=== PATIENT | male | born 1955 | race Caucasian/White ===

== ENCOUNTER 2022-11-29 07:37 | Inpatient (IN) | payer MEDICARE, BC ==
[2022-11-29] MEDS ORDERED: SODIUM CHLORIDE 0.9% 1,000 ML IV STA (07:48)
--- NOTE | 2022-11-29 08:08 | ED ---
General Adult HPI - General Chief complaint: Abdominal Pain Stated complaint: stomachache Time Seen by Provider: 11/29/22 07:47 Source: patient Mode of arrival: ambulatory Limitations: no limitations - History of Present Illness Initial comments: Dictation was produced using [employer] dictation software. please excuse any grammatical, word or spelling errors. Chief Complaint: 67-year-old male presents with abdominal pain History of Present Illness: Patient is 59-year-old male past medical history hypertension presents to the ER for abdominal pain. Patient states that he has been having abdominal pain that started in the epigastric/periumbilical region yesterday. He started having tremors. He is seen at the urgent care were a influenza and COVID-19 tests were both negative. He is discharged. Today he states that his symptoms worsened. Now has pain is in the right lower quadrant. He has no history of appendectomy. Patient also states that his headache after hitting his head multiple times over the past 2 weeks. Denies any loss of consciousness. Denies any cough. No shortness of breath. No sore throat. The ROS documented in this emergency department record has been reviewed and confirmed by me. Those systems with pertinent positive or negative responses have been documented in the HPI. All other systems are other negative and/or noncontributory. - Related Data Allergies Allergy/AdvReac Type Severity Reaction Status Date / Time No Known Allergies Allergy Verified 11/29/22 07:46 Review of Systems ROS Statement: Those systems with pertinent positive or pertinent negative responses have been documented in the HPI. ROS Other: All systems not noted in ROS Statement are negative. Past Medical History Past Medical History: Hypertension History of Any Multi-Drug Resistant Organisms: None Reported Past Surgical History: No Surgical Hx Reported Past Psychological History: No Psychological Hx Reported Smoking Status: Never smoker Past Alcohol Use History: None Reported Past Drug Use History: None Reported General Exam - General Exam Comments Initial Comments: PHYSICAL EXAM: General Impression: Alert and oriented x3, not in acute distress HEENT: Normocephalic atraumatic, extra-ocular movements intact, pupils equal and reactive to light bilaterally, dry mucous membranes Cardiovascular: Heart regular rate and rhythm Chest: Able to complete full sentences, no retractions, no tachypnea Abdomen: abdomen soft, minimal tenderness to the right lower quadrant, non- distended, no organomegaly Musculoskeletal: Pulses present and equal in all extremities, no peripheral edema Motor: no focal deficits noted Neurological: CN II-XII grossly intact, no focal motor or sensory deficits noted Skin: Intact with no visualized rashes Psych: Normal affect and mood Limitations: no limitations Course Vital Signs 11/29/22 11/29/22 07:42 11:00 Temperature 99.8 F H Pulse Rate 101 H 83 Respiratory 18 18 Rate Blood Pressure 87/59 90/61 O2 Sat by Pulse 93 L 94 L Oximetry EKG Findings - EKG Comments: EKG Findings:: My EKG interpretation: Ventricular rate 80, sinus rhythm,. 170, QRS 93, QTC 396. No [place] prolongation, no QTC prolongation, no ST or T-wave changes noted. Overall, this EKG is unremarkable Procedures - Sepsis Sepsis Focused Exam #1 Time Sepsis Criteria Met: :15 Sepsis Focused Exam Date: 11/29/22 Sepsis Focused Exam Time: :16 Sepsis Focused Exam Complete: Yes Vital Signs & RN Notes Reviewed: Yes Capillary Refill: < 2 Seconds: Fingers, Toes Peripheral Pulses: Normal: Radial (R), Radial (L), Posterior Tibialis (R), Posterior Tibialis (L), Dorsalis Pedis (R), Dorsalis Pedis (L) Skin Color: Normal for Patient Respiratory Exam: normal lung sounds Cardiovascular Exam: regular rate Medical Decision Making - Medical Decision Making Was pt. sent in by a medical professional or institution (ZARIA Elliott, SENIOR HARDWARE ENGINEER, urgent care, hospital, or correction...) When possible be specific @ -No Did you speak to anyone other than the patient for history (EMS, parent, family, police, friend...)? What history was obtained from this source @ - states patient is abdominal pain Did you review nursing and triage notes (agree or disagree)? Why? @ -I reviewed and agree with nursing and triage notes Were old charts reviewed (outside hosp., previous admission, EMS record, old EKG, old radiological studies, urgent care reports/EKG's, correction records)? Report findings @ -No old charts were reviewed Differential Diagnosis (chest pain, altered mental status, abdominal pain women, abdominal pain men, vaginal bleeding, musculoskeletal, weakness, fever, dyspnea, syncope, headache, dizziness, GI bleed, back pain, seizure, CVA, palpatations, mental health)? @ -Differential Abdominal Pain Men: Appendicitis, cholecystitis, diverticulosis, ischemic bowel, pancreatitis, hepatitis, UTI, gastroenteritis, AAA, incarcerated hernia, bowel obstruction, constipation, inflammatory bowel, hepatitis, peptic ulcer disease, splenic infarction, perforated viscus, testicular torsion, this is not meant to be an all-inclusive list EKG interpreted by me (3pts min.). @ -See above X-rays interpreted by me (1pt min.). @ -None done CT interpreted by me (1pt min.). @ -CT abdomen and pelvis shows acute appendicitis U/S interpreted by me (1pt. min.). @ -None done What testing was considered but not performed or refused? (CT, X-rays, U/S, labs)? Why? @ -None What meds were considered but not given or refused? Why? @ -None Did you discuss the management of the patient with other professionals (professionals i.e. , PA, SENIOR HARDWARE ENGINEER, lab, RT, psych nurse, manager social responsibility, technical manager chemical plant, teacher, community cultural development officer, log manager)? Give summary @ -No Was smoking cessation discussed for >3mins.? @ -No Was critical care preformed (if so, how long)? @ -yes, 33 minutes Were there social determinants of health that impacted care today? How? (Homelessness, low income, unemployed, alcoholism, drug addiction, transportation, low edu. Level, literacy, decrease access to med. care, senior living, rehab)? @ -No Was there de-escalation of care discussed even if they declined (Discuss DNR or withdrawal of care, Hospice)? DNR status @ -No What co-morbidities impacted this encounter? (DM, HTN, Smoking, COPD, CAD, Cancer, CVA, ARF, Chemo, Hep., AIDS, mental health diagnosis, sleep apnea, morbid obesity)? @ -None Was patient admitted / discharged? Hospital course, mention meds given and route, prescriptions, significant lab abnormalities, going to OR and other pertinent info. @ -59-year-old male presents to emergency room with abdominal pain. Vital signs shows low blood pressure of 8759 patient given IV fluids with improvement of blood pressure. Low-grade temperature 99.8 orally. Patient has palpatory right lower quadrant pain. Laboratory evaluation obtained shows lactic acid of 4.4, CT shows acute appendicitis. Patient started on Zosyn. Physical presentation consistent with sepsis. Undiagnosed new problem with uncertain prognosis? @ -No Drug Therapy requiring intensive monitoring for toxicity (Heparin, Nitro, Insulin, Cardizem)? @ -No Were any procedures done? @ -No Diagnosis/symptom? Acute, or Chronic, or Acute on Chronic? Uncomplicated (without systemic symptoms) or Complicated (systemic symptoms)? @ -. Sepsis secondary to acute appendicitis Side effects of treatment? @ -No Exacerbation, Progression, or Severe Exacerbation? @ -No Poses a threat to life or bodily function? How? (Chest pain, [place], [place], pneumonia, PE, COPD, DKA, ARF, appy, cholecystitis, CVA, Diverticulitis, Homicidal, Suicidal, threat to staff... and all critical care pts) @ -yes - Lab Data Result diagrams: 11/29/22 08:10 11/29/22 08:10 Lab Results 11/29/22 11/29/22 11/29/22 Range/Units 08:10 08:10 08:10 WBC 10.5 (3.8-10.6) k/uL RBC 4.81 (4.30-5.90) m/uL Hgb 15.4 (13.0-17.5) gm/dL Hct 44.4 (39.0-53.0) % MCV 92.3 (80.0-100.0) fL MCH 32.1 (25.0-35.0) pg MCHC 34.8 (31.0-37.0) g/dL RDW 12.5 (11.5-15.5) % Plt Count 170 (150-450) k/uL MPV 8.0 Neutrophils % (Manual) 89 % Band Neuts % (Manual) 7 % Lymphocytes % (Manual) 2 % Monocytes % (Manual) 1 % Basophils % (Manual) 1 % Metamyelocytes % 2 % Neutrophils # (Manual) 10.00 H (1.3-7.7) k/uL Lymphocytes # (Manual) 0.21 L (1.0-4.8) k/uL Monocytes # (Manual) 0.11 (0-1.0) k/uL Basophils # (Manual) 0.11 (0-0.2) k/uL Metamyelocytes # (Man) 0.21 H (0) k/uL Nucleated RBCs 0 (0-0) /100 WBC Manual Slide Review Performed Toxic Granulation Present PT 12.2 H (9.0-12.0) sec INR 1.2 H (<1.2) APTT 24.1 (22.0-30.0) sec Sodium 133 L (137-145) mmol/L Potassium 3.6 (3.5-5.1) mmol/L Chloride 99 (98-107) mmol/L Carbon Dioxide 19 L (22-30) mmol/L Anion Gap 15 mmol/L BUN 19 (9-20) mg/dL Creatinine 1.23 (0.66-1.25) mg/dL Est GFR (CKD-EPI)AfAm 70 (>60 ml/min/1.73 sqM) Est GFR (CKD-EPI)NonAf 60 (>60 ml/min/1.73 sqM) Glucose 103 H (74-99) mg/dL Lactic Ac Sepsis Rflx Plasma Lactic Acid Jordi (0.7-2.0) mmol/L Calcium 8.9 (8.4-10.2) mg/dL Magnesium 1.9 (1.6-2.3) mg/dL Total Bilirubin 2.0 H (0.2-1.3) mg/dL AST 30 (17-59) U/L ALT 38 (4-49) U/L Alkaline Phosphatase 69 (38-126) U/L Total Protein 6.8 (6.3-8.2) g/dL Albumin 4.2 (3.5-5.0) g/dL Lipase 138 (23-300) U/L 11/29/22 11/29/22 Range/Units 08:10 08:45 WBC (3.8-10.6) k/uL RBC (4.30-5.90) m/uL Hgb (13.0-17.5) gm/dL Hct (39.0-53.0) % MCV (80.0-100.0) fL MCH (25.0-35.0) pg MCHC (31.0-37.0) g/dL RDW (11.5-15.5) % Plt Count (150-450) k/uL MPV Neutrophils % (Manual) % Band Neuts % (Manual) % Lymphocytes % (Manual) % Monocytes % (Manual) % Basophils % (Manual) % Metamyelocytes % % Neutrophils # (Manual) (1.3-7.7) k/uL Lymphocytes # (Manual) (1.0-4.8) k/uL Monocytes # (Manual) (0-1.0) k/uL Basophils # (Manual) (0-0.2) k/uL Metamyelocytes # (Man) (0) k/uL Nucleated RBCs (0-0) /100 WBC Manual Slide Review Toxic Granulation PT (9.0-12.0) sec INR (<1.2) APTT (22.0-30.0) sec Sodium (137-145) mmol/L Potassium (3.5-5.1) mmol/L Chloride (98-107) mmol/L Carbon Dioxide (22-30) mmol/L Anion Gap mmol/L BUN (9-20) mg/dL Creatinine (0.66-1.25) mg/dL Est GFR (CKD-EPI)AfAm (>60 ml/min/1.73 sqM) Est GFR (CKD-EPI)NonAf (>60 ml/min/1.73 sqM) Glucose (74-99) mg/dL Lactic Ac Sepsis Rflx Y Plasma Lactic Acid Jordi 4.4 H* (0.7-2.0) mmol/L Calcium (8.4-10.2) mg/dL Magnesium (1.6-2.3) mg/dL Total Bilirubin (0.2-1.3) mg/dL AST (17-59) U/L ALT (4-49) U/L Alkaline Phosphatase (38-126) U/L Total Protein (6.3-8.2) g/dL Albumin (3.5-5.0) g/dL Lipase (23-300) U/L Disposition Clinical Impression: Appendicitis Disposition: ADMITTED IP TO THIS [facility] Condition: Critical Referrals: Wilbur Brower MD [Primary Care Provider] - 1-2 days Decision Time: 11:16
[2022-11-29 08:41] LABS: AST 30 U/L (17-59); African American GFR (CKD) 70 (>60 ml/min/1.73 sqM); Albumin 4.2 g/dL (3.5-5.0); Alkaline Phosphatase 69 U/L (38-126); Anion Gap 15 mmol/L; Blood Urea Nitrogen 19 mg/dL (9-20); Calcium 8.9 mg/dL (8.4-10.2); Carbon Dioxide 19 mmol/L (22-30); Chloride 99 mmol/L (98-107); Glucose 103 mg/dL (74-99); Lipase 138 U/L (23-300); Magnesium 1.9 mg/dL (1.6-2.3); Non-African American GFR(CKD) 60 (>60 ml/min/1.73 sqM); Potassium 3.6 mmol/L (3.5-5.1); Sodium 133 mmol/L (137-145); Total Protein 6.8 g/dL (6.3-8.2)
[2022-11-29 08:47] LABS: ALT 38 U/L (4-49)
[2022-11-29 08:50] LABS: INR 1.2 (<1.2); Partial Thromboplastin Time 24.1 sec (22.0-30.0); Prothrombin Time 12.2 sec (9.0-12.0)
[2022-11-29 08:52] LABS: HCT 44.4 % (39.0-53.0); HGB 15.4 gm/dL (13.0-17.5); MCH 32.1 pg (25.0-35.0); MCHC 34.8 g/dL (31.0-37.0); MCV 92.3 fL (80.0-100.0); Platelet Count 170 k/uL (150-450); RBC 4.81 m/uL (4.30-5.90); RDW 12.5 % (11.5-15.5); WBC 10.5 k/uL (3.8-10.6)
[2022-11-29 09:24] LABS: Band Neutrophils % 7 %; Basophils # (M) 0.11 k/uL (0-0.2); Lymphocytes # (M) 0.21 k/uL (1.0-4.8); Metamyelocytes # (M) 0.21 k/uL (0); Metamyelocytes % 2 %; Monocytes # (M) 0.11 k/uL (0-1.0); Neutrophils % (M) 89 %; Nucleated Red Blood Cells 0 /100 WBC (0-0); Total Cells Counted 200
--- NOTE | 2022-11-29 09:24 | CT ---
EXAMINATION TYPE: CT brain wo con DATE OF EXAM: 11/29/2022 COMPARISON: None HISTORY: 67-year-old male with pain after Head injury, sweaty TECHNIQUE: Examination was done in axial plane without intravenous contrast. Coronal and sagittal r econstructions performed. CT DLP: 1099 mGycm Automated exposure control for dose reduction was used. FINDINGS: There is no evidence of acute intracranial hemorrhage, acute ischemic changes, mass, mass-effect, or extra-axial fluid collection. There is no effacement of cerebral sulci or basal subarachnoid cister ns. There is no hydrocephalus. There is no midline shift. Gonzalez-white matter distinction is preserv ed. Mild to moderate mucosal thickening left ethmoid air cells. Mastoid air cells are well pneumatized. O rbits and globes are intact. IMPRESSION: No acute intracranial abnormality seen. [id number] chronic left ethmoid sinus disease.
[2022-11-29 09:26] LABS: Toxic Granulation Present
--- NOTE | 2022-11-29 09:32 | CT ---
EXAMINATION TYPE: CT abdomen pelvis w con DATE OF EXAM: 11/29/2022 COMPARISON: NONE HISTORY: 67-year-old male abdominal pain and hypotension, Stomach pains TECHNIQUE: Contiguous axial scanning of the abdomen and pelvis following administration of 100 ml Iso noel 300 IV contrast. Delayed images through the kidneys and coronal/sagittal reconstructions perform ed. CT DLP: 2651 mGycm Automated exposure control for dose reduction was used. FINDINGS: LUNG BASES: Strandy atelectasis at the lung bases. Otherwise, no significant abnormality is appreciat ed. LIVER/GB: No significant abnormality is appreciated. PANCREAS: No significant abnormality is seen. SPLEEN: No significant abnormality is seen. ADRENALS: No significant abnormality is seen. KIDNEYS: On delayed kidney images, no contrast is seen within the renal collecting systems. BOWEL: Tiny hiatal hernia. There are dilated small bowel or free air. There is a thickened, fluid-filled, and an inflamed appendix in the right lower quadrant. 1.0 cm ante rolisthesis present at the base of the appendix. Moderate inflammatory fat stranding and stranding ed jonathan and fluid in the adjacent peritoneum. Mild generalized colonic diverticulosis. Mildly redundant s igmoid colon. LYMPH NODES: No significant abnormality is seen. OTHER: Small to moderate-sized 3.3 cm wide fatty umbilical hernia. Mild to moderate prostatic calcifi cations infrarenal abdominal aorta borderline ectasia of the infrarenal segment of the 2.5 cm.r ectas ia of the distal left common iliac artery up to 1.8 cm. PELVIS: Prostatomegaly of 5.3 cm wide. Pelvic phleboliths. Soft tissue impression onto the base of th e bladder. Bladder urine distended. No abnormal fluid collection in the pelvis. Prominent left junior recruiter al iliac chain lymph node measuring up to 1 cm probably reactive/post inflammatory. Small amount of p elvic ascites fluid. BONES: Hypertrophic facet arthropathy mid to lower lumbar spine with degenerative grade 1 anterolisth esis L4-L5 and L5-S1. Mild narrowing of the spinal canal at L4-L5. Moderate to severe left neural for aminal stenosis at L5-S1. IMPRESSION: 1. EXAM POSITIVE FOR ACUTE APPENDICITIS WITH MODERATE LOCAL INFLAMMATION, STRANDY SURROUNDING EDEMA, AND MILD PELVIC FREE FLUID LIKELY REACTIVE TO THE ABOVE INFLAMMATION. NO ABSCESS OR FREE AIR SEEN AT THIS TIME. 2. A 1 CM APPENDICOLITH AT THE BASE OF THE APPENDIX. 3. Mild generalized colonic diverticulosis. 4. Tiny hiatal hernia. Small to moderate sized fatty umbilical hernia. Prostatomegaly of 5.3 cm wide, possible BPH. 5. On the delayed images, no contrast is seen within the renal collecting systems. Correlate with BUN /creatinine to exclude acute kidney injury.
[2022-11-29] MEDS ORDERED: NALOXONE 0.4 MG/ML 1 ML VIAL IV PRN (11:12)
[2022-11-29] MEDS ORDERED: SODIUM CHLORIDE 0.9% 1,500 ML IV STA (11:44)
[2022-11-29] MEDS: SODIUM CHLORIDE 0.9% 1,000 ML IV SCH ×3 (12:19→22:17)
[2022-11-29] MEDS: PIPERACILLIN-TAZOBACTAM 3.375 GM in SODIUM CHLORIDE 0.9% 100 ML IVPB SCH ×2 (12:19→22:38)
[2022-11-29] MEDS ORDERED: ONDANSETRON 4 MG/2 ML VIAL IVP PRN (12:36)
--- NOTE | 2022-11-29 12:51 | P.GSHP ---
History of Present Illness H&P Date: 11/22/22 CHIEF COMPLAINT: Abdominal pain HISTORY OF PRESENT ILLNESS: This is a 67-year-old male who presented to the hospital with complaints of right lower quadrant abdominal pain. Patient reports that the pain started around 7:00 yesterday morning around the umbilicus area. It had then radiated down to the right lower quadrant. Patient reports the pain was severe. He was having chills and sweats. Also having nausea with dry heaves. He reports regular bowel movements. Denies any abdominal surgical history. denies any cardiac history. Computed tomography scan abdomen and pelvis did show evidence of acute appendicitis. Patient has been hypotensive. He has received 1 L fluid bolus and is scheduled for 1500 mL bolus. Also note patient apparently has had a fall. CT brain shows no acute intracranial abnormality. PAST MEDICAL HISTORY: See below PAST SURGICAL HISTORY: See below MEDICATIONS: See below ALLERGIES: See below SOCIAL HISTORY: No illicit drug use. REVIEW OF SYSTEMS: CONSTITUTIONAL: Denies fever or chills. HEENT: Denies blurred vision, vision changes, or eye pain. Denies hemoptysis CARDIOVASCULAR: Denies chest pain or pressure. RESPIRATORY: No shortness of breath. GASTROINTESTINAL: See HPI for pertinent findings HEMATOLOGIC: Denies bleeding disorders. GENITOURINARY: Denies any blood in urine or increased urinary frequency. SKIN: Denies pruitis. Denies rash. PHYSICAL EXAM: VITAL SIGNS: Reviewed GENERAL: Well-developed in no acute distress. ABDOMEN: Soft. Nondistended. Tenderness to palpation in the right lower quadrant NEUROLOGIC: Alert and oriented. Cranial nerves II through XII grossly intact. LABORATORY DATA: WBC 10.5 Hgb 15.4 platelets 170 INR 1.2 Sodium 133 potassium 3.6 creatinine 1.23 Lactic acid 4.4 Total bili 2.0 LFTs normal lipase 130 IMAGING: Computed tomography scan abdomen and pelvis in the report states positive for acute appendicitis with moderate local inflammation, strandy surrounding edema, mild pelvic free fluid likely reactive to the above inflammation. No abscess or free air seen at this time. 1 cm appendicolith at the base of the appendix. Mild generalize colonic diverticulosis. Tiny hiatal hernia. Small to moderate size fatty umbilical hernia. Prostamegaly. Computed tomography scan of the brain no acute intracranial abnormality seen. Mild to moderate chronic left ethmoid sinus disease. ASSESSMENT: 1. Acute appendicitis 2. Hypotension PLAN: -Patient scheduled for laparoscopic appendectomy today with Dr. Haynes -Keep patient nothing by mouth -Continue IV fluids and agree with IV fluid bolus -Start IV antibiotics -Continue antiemetics -IV Tylenol added as needed for pain -Consult placed for medicine service Physician Antique Furniture Repairer note has been reviewed by physician. Signing provider agrees with the documented findings, assessment, and plan of care. I have personally seen and examined the patient, reviewed the ACTIVITY THERAPY TEACHER /PAs history, exam and MDM and agree with the assessment and plan as written. Based on total visit time, I have performed more than 50% of the visit. As above: Patient with acute appendicitis and septic picture. Patient was started on antibiotics on arrival. Continue IV antibiotics. Will proceed with laparoscopic, possible open appendectomy at this time. Risks of bleeding, infection, conversion to an open procedure, bladder and bowel injury, hernia, abscess, progressive sepsis reviewed. He understands and wishes to proceed. Past Medical History Past Medical History: Hypertension History of Any Multi-Drug Resistant Organisms: None Reported Past Surgical History: No Surgical Hx Reported Past Psychological History: No Psychological Hx Reported Smoking Status: Never smoker Past Alcohol Use History: None Reported Past Drug Use History: None Reported Medications and Allergies Home Medications Medication Instructions Recorded Confirmed Type ALPRAZolam [Xanax] 0.25 mg PO DAILY PRN 11/29/22 11/29/22 History ALPRAZolam [Xanax] 0.25 mg PO HS 11/29/22 11/29/22 History Magnesium Oxide [Magnesium] 500 mg PO HS 11/29/22 11/29/22 History Sildenafil Citrate [Sildenafil] 20 mg PO DAILY PRN 11/29/22 11/29/22 History Thiamine [Vitamin B-1] 100 mg PO HS 11/29/22 11/29/22 History amLODIPine [Norvasc] 10 mg PO HS 11/29/22 11/29/22 History Allergies Allergy/AdvReac Type Severity Reaction Status Date / Time benazepril AdvReac Cough Verified 11/29/22 16:49 Surgical - Exam Vital Signs Temp Pulse Resp BP Pulse Ox 99.8 F H 101 H 18 87/59 93 L 11/29/22 07:42 11/29/22 07:42 11/29/22 07:42 11/29/22 07:42 11/29/22 07:42 Results - Labs 11/29/22 08:10 11/29/22 08:10 Abnormal Lab Results - Last 24 Hours (Table) 11/29/22 11/29/22 11/29/22 Range/Units 08:10 08:10 08:10 Neutrophils # (Manual) 10.00 H (1.3-7.7) k/uL Lymphocytes # (Manual) 0.21 L (1.0-4.8) k/uL Metamyelocytes # (Man) 0.21 H (0) k/uL PT 12.2 H (9.0-12.0) sec INR 1.2 H (<1.2) Sodium 133 L (137-145) mmol/L Carbon Dioxide 19 L (22-30) mmol/L Glucose 103 H (74-99) mg/dL Plasma Lactic Acid Jordi (0.7-2.0) mmol/L Total Bilirubin 2.0 H (0.2-1.3) mg/dL 11/29/22 Range/Units 08:10 Neutrophils # (Manual) (1.3-7.7) k/uL Lymphocytes # (Manual) (1.0-4.8) k/uL Metamyelocytes # (Man) (0) k/uL PT (9.0-12.0) sec INR (<1.2) Sodium (137-145) mmol/L Carbon Dioxide (22-30) mmol/L Glucose (74-99) mg/dL Plasma Lactic Acid Jordi 4.4 H* (0.7-2.0) mmol/L Total Bilirubin (0.2-1.3) mg/dL Diabetes panel 11/29/22 Range/Units 08:10 Sodium 133 L (137-145) mmol/L Potassium 3.6 (3.5-5.1) mmol/L Chloride 99 (98-107) mmol/L Carbon Dioxide 19 L (22-30) mmol/L BUN 19 (9-20) mg/dL Creatinine 1.23 (0.66-1.25) mg/dL Glucose 103 H (74-99) mg/dL Calcium 8.9 (8.4-10.2) mg/dL AST 30 (17-59) U/L ALT 38 (4-49) U/L Alkaline Phosphatase 69 (38-126) U/L Total Protein 6.8 (6.3-8.2) g/dL Albumin 4.2 (3.5-5.0) g/dL Calcium panel 11/29/22 Range/Units 08:10 Calcium 8.9 (8.4-10.2) mg/dL Albumin 4.2 (3.5-5.0) g/dL Pituitary panel 11/29/22 Range/Units 08:10 Sodium 133 L (137-145) mmol/L Potassium 3.6 (3.5-5.1) mmol/L Chloride 99 (98-107) mmol/L Carbon Dioxide 19 L (22-30) mmol/L BUN 19 (9-20) mg/dL Creatinine 1.23 (0.66-1.25) mg/dL Glucose 103 H (74-99) mg/dL Calcium 8.9 (8.4-10.2) mg/dL Adrenal panel 11/29/22 Range/Units 08:10 Sodium 133 L (137-145) mmol/L Potassium 3.6 (3.5-5.1) mmol/L Chloride 99 (98-107) mmol/L Carbon Dioxide 19 L (22-30) mmol/L BUN 19 (9-20) mg/dL Creatinine 1.23 (0.66-1.25) mg/dL Glucose 103 H (74-99) mg/dL Calcium 8.9 (8.4-10.2) mg/dL Total Bilirubin 2.0 H (0.2-1.3) mg/dL AST 30 (17-59) U/L ALT 38 (4-49) U/L Alkaline Phosphatase 69 (38-126) U/L Total Protein 6.8 (6.3-8.2) g/dL Albumin 4.2 (3.5-5.0) g/dL
[2022-11-29] MEDS ORDERED: SODIUM CHLORIDE 0.9% 500 ML 500 ML IV ONE (15:29)
--- NOTE | 2022-11-29 15:31 | P.CONS ---
History of Present Illness - History of Present Illness This is a pleasant 67 years old male with past medical history of hypertension. 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 He had regular bowel movement yesterday morning. He has low appetite and he vomited a little bit yesterday. He denies any chest pain or dyspnea. Patient says that he can go upstairs downstairs with no difficulty. No dyspnea No other neurological urinary symptoms. No headache or dizziness. He denies smoking alcohol or illicit drugs. While we do not encounter patient was experiencing chills he had a fever of 100.4. Blood pressure low-normal 87/59 and currently 100/60 Review of Systems Review of systems CONSTITUTIONAL: No fever, no malaise, no fatigue. HEENT: No recent visual problems or hearing problems. Denied any sore throat. CARDIOVASCULAR: No orthopnea, PND, no palpitations, no syncope. PULMONARY: No shortness of breath, no cough, no hemoptysis. -GASTROINTESTINAL: No diarrhea, no nausea, no vomiting, NEUROLOGICAL: No headaches, no weakness, no numbness. HEMATOLOGICAL: Denies any bleeding or petechiae. GENITOURINARY: Denies any burning micturition, frequency, or urgency. MUSCULOSKELETAL/RHEUMATOLOGICAL: Denies any joint pain, swelling, or any muscle pain. ENDOCRINE: Denies any polyuria or polydipsia. Past Medical History Past Medical History: Hypertension History of Any Multi-Drug Resistant Organisms: None Reported Past Surgical History: No Surgical Hx Reported Past Psychological History: No Psychological Hx Reported Smoking Status: Never smoker Past Alcohol Use History: None Reported Past Drug Use History: None Reported Medications and Allergies Home Medications Medication Instructions Recorded Confirmed Type ALPRAZolam [Xanax] 0.25 mg PO DAILY PRN 11/29/22 11/29/22 History ALPRAZolam [Xanax] 0.25 mg PO HS 11/29/22 11/29/22 History Magnesium Oxide [Magnesium] 500 mg PO HS 11/29/22 11/29/22 History Sildenafil Citrate [Sildenafil] 20 mg PO DAILY PRN 11/29/22 11/29/22 History Thiamine [Vitamin B-1] 100 mg PO HS 11/29/22 11/29/22 History amLODIPine [Norvasc] 10 mg PO HS 11/29/22 11/29/22 History Allergies Allergy/AdvReac Type Severity Reaction Status Date / Time benazepril AdvReac Cough Verified 11/29/22 11:57 Physical Exam Vitals: Vital Signs Temp Pulse Pulse Resp BP BP Pulse Ox 11/29/22 13:24 98.1 F 71 18 100/60 93 L 11/29/22 12:38 100.4 F H 78 15 104/67 94 L 11/29/22 11:00 83 18 90/61 94 L 11/29/22 07:42 99.8 F H 101 H 18 87/59 93 L Intake and Output 11/29/22 11/29/22 11/29/22 06:59 14:59 22:59 Other: Weight 104.326 kg GENERAL: The patient is alert and oriented x3, not in any acute distress. Well developed, well nourished. HEENT: Pupils are round and equally reacting to light. EOMI. No scleral icterus. No conjunctival pallor. Normocephalic, atraumatic. No pharyngeal erythema. No thyromegaly. CARDIOVASCULAR: S1 and S2 present. No murmurs, rubs, or gallops. PULMONARY: Chest is clear to auscultation, no wheezing , no crackles. -ABDOMEN: Soft, RLL tenderness with mild rebound tenderness, nondistended, normoactive bowel sounds. No palpable organomegaly. MUSCULOSKELETAL: No joint swelling or deformity. EXTREMITIES: No cyanosis, clubbing, or pedal edema. NEUROLOGICAL: Gross neurological examination did not reveal any focal deficits. SKIN: No rashes. no petechiae. Results CBC & Chem 7: 11/29/22 08:10 11/29/22 08:10 Labs: Abnormal Lab Results - Last 24 Hours (Table) 11/29/22 11/29/22 11/29/22 Range/Units 08:10 08:10 08:10 Neutrophils # (Manual) 10.00 H (1.3-7.7) k/uL Lymphocytes # (Manual) 0.21 L (1.0-4.8) k/uL Metamyelocytes # (Man) 0.21 H (0) k/uL PT 12.2 H (9.0-12.0) sec INR 1.2 H (<1.2) Sodium 133 L (137-145) mmol/L Carbon Dioxide 19 L (22-30) mmol/L Glucose 103 H (74-99) mg/dL Plasma Lactic Acid Jordi (0.7-2.0) mmol/L Total Bilirubin 2.0 H (0.2-1.3) mg/dL 08/25/23 Range/Units 08:10 Neutrophils # (Manual) (1.3-7.7) k/uL Lymphocytes # (Manual) (1.0-4.8) k/uL Metamyelocytes # (Man) (0) k/uL PT (9.0-12.0) sec INR (<1.2) Sodium (137-145) mmol/L Carbon Dioxide (22-30) mmol/L Glucose (74-99) mg/dL Plasma Lactic Acid Jordi 4.4 H* (0.7-2.0) mmol/L Total Bilirubin (0.2-1.3) mg/dL Assessment and Plan Assessment: Acute appendicitis Sepsis with fever and tachycardia Hypotension secondary to above History of hypertension Obesity with BMI of 31.2 Plan: Give 1 more bolus of normal saline 500 mL Continue with aggressive IV hydration, currently on normal saline with 30 mL per hour Continue with Zosyn alone. Blood culture Pain management Surgery primary team on the case for surgical excision of this appendicitis Labs and medication were reviewed.. Continue same treatment. Continue with symptomatic treatment. Resume home medication. Monitor labs and vitals. DVT and GI prophylaxis. Further recommendations as per clinical course of the patient DVT prophylaxis: Subcutaneous heparin GI Prophylaxis: Pepcid Prognosis is guarded Thank you for your consult, we will follow up
[2022-11-29] MEDS ORDERED: HEPARIN SODIUM,PORCINE/PF 5,000 UNIT/0.5 ML SYRINGE SQ ONE (16:57)
[2022-11-29] MEDS ORDERED: LACTATED RINGERS 1,000 ML IV ONE ×5 (16:57→20:25)
[2022-11-29] MEDS ORDERED: fentaNYL (PF) 50 MCG/ML 2 ML AMP ONE (17:26)
[2022-11-29] MEDS ORDERED: SUCCINYLCHOLINE CHLORIDE 200 MG/10 ML VIAL IV ONE (17:26)
[2022-11-29] MEDS ORDERED: KETOROLAC 15 MG/ML 1 ML VIAL ONE (17:26)
[2022-11-29] MEDS ORDERED: GLYCOPYRROLATE 0.2 MG/ML 2 ML VIAL ONE (17:26)
[2022-11-29] MEDS ORDERED: PROPOFOL 10 MG/ML 20 ML VIAL IV ONE (17:26)
[2022-11-29] MEDS ORDERED: LIDOCAINE 4% LTA KIT (4 ML) TOPICAL ONE (17:26)
[2022-11-29] MEDS ORDERED: HYDROmorphone (PF) 1 MG/ML ONE (17:26)
[2022-11-29] MEDS ORDERED: NEOSTIGMINE 1 MG/ML 10 ML VIAL ONE (17:26)
[2022-11-29] MEDS ORDERED: ROCURONIUM 10 MG/ML (5 ML VIAL) IV ONE (17:26)
[2022-11-29] MEDS ORDERED: LIDOCAINE 2% INJ 20 MG/ML (2 ML VIAL) ONE (17:26)
[2022-11-29] MEDS ORDERED: MIDAZOLAM 2 MG/2 ML VIAL ONE (17:26)
[2022-11-29] MEDS ORDERED: metroNIDAZOLE-NS PMX 500 MG in SALINE 1 100ML.BAG IVPB STA (17:28)
[2022-11-29] MEDS ORDERED: HEPARIN SODIUM,PORCINE 5,000 UNIT/ML 1 ML VIAL SQ ONE (17:30)
[2022-11-29] MEDS ORDERED: BUPIVACAINE (PF) 0.25% 10 ML VIAL SQ ONE (17:52)
[2022-11-29] MEDS ORDERED: HYDROmorphone 0.5 MG/0.5 ML SYRINGE IVP PRN (18:42)
[2022-11-29] MEDS ORDERED: HYDROmorphone 1 MG/ML 1 ML SYRINGE IVP PRN (18:42)
[2022-11-29] MEDS ORDERED: HYDROcodone/APAP 5-325MG 1 EACH TAB PO PRN (18:42)
--- NOTE | 2022-11-29 18:46 | P.OP ---
Date of Procedure: 11/29/22 Procedure(s) Performed: PREOPERATIVE DIAGNOSIS: Acute appendicitis POSTOPERATIVE DIAGNOSIS: Gangrenous appendicitis PROCEDURE: Laparoscopic appendectomy SURGEON: [place] EBL: 25 mL ANESTHESIA: General COMPLICATIONS: None OPERATIVE PROCEDURE: The patient was brought and placed on the operating table in the supine position. The patient was placed under general anesthesia. The abdomen was prepped and draped in the usual sterile fashion. The patient had a [id number]-sized umbilical hernia. For that reason a supraumbilical curvilinear incision was made. The fascia was retracted anteriorly with Lynsey forceps. The Veress needle was advanced into the peritoneal cavity. The saline drop test was normal. Insufflation took place to 15 mmHg. A 5 mm trocar was then placed. An additional 5 mm suprapubic trocar was placed under direct visualization as well as a 12 mm left lower quadrant trocar under direct visualization. The appendix was inspected. It was acutely inflamed and actually had a somewhat hemorrhagic appearance. The pericolonic fat was adherent to the appendix and this was able to be bluntly dissected. The appendix itself and the mesentery had ecchymosis noted. The base of the appendix was divided using a white load 45 mm intestinal stapler. The mesoappendix was divided using both LigaSure and 12 mm clips. The area was thoroughly irrigated no bleeding was seen. The appendix was brought out of the peritoneal cavity through the left lower quadrant trocar site with an Endo Catch bag. The fascia at the 12 mm site was closed using a [id number] 0 Vicryl stitch. The skin at all 3 sites was closed using 4-0 Monocryl sutures. Skin glue was then applied. DISPOSITION: Stable to recovery room
[2022-11-29] MEDS: ACETAMINOPHEN IV (For NPO) 1,000 MG in EMPTY BAG 1 BAG IVPB PRN ×2 (19:04→19:19)
[2022-11-29] MEDS: PHENYLEPHRINE-0.9% NACL SYG 1,000 MCG/10 ML SYRINGE IVP ONE ×4 (19:56→20:50)
[2022-11-29] MEDS: FAMOTIDINE 20 MG/2 ML VIAL IV SCH (22:39)
[2022-11-29] MEDS: HEPARIN SODIUM,PORCINE 5,000 UNIT/ML 1 ML VIAL SQ SCH (22:40)
[2022-11-29] MEDS: THIAMINE 100 MG TAB PO SCH (22:40)
[2022-11-30] MEDS: metroNIDAZOLE-NS PMX 500 MG in SALINE 1 100ML.BAG IVPB SCH ×4 (00:35→23:44)
[2022-11-30] MEDS: PIPERACILLIN-TAZOBACTAM 3.375 GM in SODIUM CHLORIDE 0.9% 100 ML IVPB SCH ×3 (03:23→18:26)
[2022-11-30 08:28] LABS: Basophils % (A) 0 %; Eosinophils # (A) 0.1 k/uL (0-0.7); Eosinophils % (A) 1 %; HCT 39.5 % (39.0-53.0); HGB 13.5 gm/dL (13.0-17.5); Lymphocytes # (A) 0.4 k/uL (1.0-4.8); Lymphocytes % (A) 4 %; MCH 32.3 pg (25.0-35.0); MCHC 34.1 g/dL (31.0-37.0); MCV 94.5 fL (80.0-100.0); Mean Platelet Volume 8.6; Monocytes # (A) 0.3 k/uL (0-1.0); Monocytes % (A) 3 %; Neutrophils # (A) 11.1 k/uL (1.3-7.7); Neutrophils % (A) 93 %; Platelet Count 103 k/uL (150-450); RBC 4.18 m/uL (4.30-5.90)
[2022-11-30 08:47] LABS: African American GFR (CKD) >90 (>60 ml/min/1.73 sqM); Anion Gap 9 mmol/L; Blood Urea Nitrogen 18 mg/dL (9-20); Calcium 7.7 mg/dL (8.4-10.2); Carbon Dioxide 22 mmol/L (22-30); Chloride 104 mmol/L (98-107); Glucose 95 mg/dL (74-99); Non-African American GFR(CKD) 80 (>60 ml/min/1.73 sqM); Potassium 3.8 mmol/L (3.5-5.1); Sodium 135 mmol/L (137-145)
[2022-11-30] MEDS: FAMOTIDINE 20 MG/2 ML VIAL IV SCH ×2 (09:06→20:17)
[2022-11-30] MEDS: SODIUM CHLORIDE 0.9% 1,000 ML IV SCH ×3 (09:06→18:26)
[2022-11-30] MEDS: HEPARIN SODIUM,PORCINE 5,000 UNIT/ML 1 ML VIAL SQ SCH ×2 (09:07→20:17)
--- NOTE | 2022-11-30 10:07 | P.PN ---
Subjective Progress Note Date: 11/30/22 Principal diagnosis: Acute appendicitis 59-year-old male doing better today. Blood pressure has been on the low side overnight. He says he feels much better than he did preoperatively. Making adequate urine. White blood cell count 12.0, lactic acid normalized. Fevers have improved. Objective - Vital Signs Vital signs: Vital Signs Temp 97.9 F 11/30/22 07:17 Pulse 54 L 11/30/22 07:17 Resp 18 11/30/22 07:17 BP 106/70 11/30/22 07:17 Pulse Ox 97 11/30/22 07:17 FiO2 Intake & Output 11/29/22 11/30/22 11/30/22 18:59 06:59 18:59 Intake Total 1050 2400 Output Total 25 Balance 1025 2400 Weight 104.326 kg 104.326 kg Intake: IV 1050 2400 Output: Estimated Blood Loss 25 Other: # Voids 1 2 - Exam Abdomen: Soft, nondistended, mild right lower quadrant and incisional tenderness, improved, incisions clean and dry - Labs CBC & Chem 7: 11/30/22 07:51 11/30/22 07:51 Labs: Abnormal Lab Results - Last 24 Hours (Table) 11/30/22 11/30/22 Range/Units 07:51 07:51 WBC 12.0 H (3.8-10.6) k/uL RBC 4.18 L (4.30-5.90) m/uL Plt Count 103 L (150-450) k/uL Neutrophils # 11.1 H (1.3-7.7) k/uL Lymphocytes # 0.4 L (1.0-4.8) k/uL Sodium 135 L (137-145) mmol/L Calcium 7.7 L (8.4-10.2) mg/dL Microbiology - Last 24 Hours (Table) 11/29/22 08:10 Blood Culture Gram Stain - Preliminary Blood Blood Culture - Preliminary Gram Neg Bacilli Gram Neg Bacilli#2 11/29/22 09:35 Blood Culture Gram Stain - Preliminary Blood Assessment and Plan (1) Sepsis Narrative/Plan: 67-year-old male with acute appendicitis and sepsis on presentation. Patient doing better today. Continue antibiotics. Await infectious disease consult. Repeat labs tomorrow. Advance diet. Anticipate discharge tomorrow if doing well. Current Visit: Yes Status: Acute Code(s): A41.9 - SEPSIS, UNSPECIFIED ORGANISM SNOMED Code(s): 60824719
--- NOTE | 2022-11-30 12:53 | P.PN ---
Subjective This is a pleasant 67 years old male with past medical history of hypertension. 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 He had regular bowel movement yesterday morning. He has low appetite and he vomited a little bit yesterday. He denies any chest pain or dyspnea. Patient says that he can go upstairs downstairs with no difficulty. No dyspnea No other neurological urinary symptoms. No headache or dizziness. He denies smoking alcohol or illicit drugs. While we do not encounter patient was experiencing chills he had a fever of 100.4. Blood pressure low-normal 87/59 and currently 100/60 11/30/2022 patient is sitting up in bed. He is status post laparoscopic cholecystectomy appendectomy. Today is postop day #1. He feels better, he feels some pressure or mild pain in the right lower quadrant, he is on liquid diet this morning. He did not have bowel movement yet. Patient was updated about his problem on positive blood culture and he verbalized understanding and acceptance with the treatment plan. Patient currently covered with Zosyn and Flagyl and blood culture is positive for gram-negative bacilli. I agree with infectious disease consult. Blood pressure is soft but is improving. Continue with aggressive hydration currently on normal saline with 130 mL/h Objective - Vital Signs Vital signs: Vital Signs Temp 97.9 F 11/30/22 07:17 Pulse 54 L 11/30/22 07:17 Resp 18 11/30/22 07:17 BP 106/70 11/30/22 07:17 Pulse Ox 97 11/30/22 07:17 FiO2 Intake & Output 11/29/22 11/30/22 11/30/22 18:59 06:59 18:59 Intake Total 1050 2400 Output Total 25 Balance 1025 2400 Weight 104.326 kg 104.326 kg Intake: IV 1050 2400 Output: Estimated Blood Loss 25 Other: # Voids 1 - Exam GENERAL: The patient is alert and oriented x3, not in any acute distress. Well developed, well nourished. HEENT: Pupils are round and equally reacting to light. EOMI. No scleral icterus. No conjunctival pallor. Normocephalic, atraumatic. No pharyngeal erythema. No thyromegaly. CARDIOVASCULAR: S1 and S2 present. No murmurs, rubs, or gallops. PULMONARY: Chest is clear to auscultation, no wheezing , no crackles. ABDOMEN: Soft, nontender, nondistended, normoactive bowel sounds. No palpable organomegaly. MUSCULOSKELETAL: No joint swelling or deformity. EXTREMITIES: No cyanosis, clubbing, or pedal edema. NEUROLOGICAL: Gross neurological examination did not reveal any focal deficits. SKIN: No rashes. no petechiae. - Labs CBC & Chem 7: 11/30/22 07:51 11/30/22 07:51 Labs: Abnormal Lab Results - Last 24 Hours (Table) 11/29/22 11/29/22 11/29/22 Range/Units 08:10 08:10 08:10 Neutrophils # (Manual) 10.00 H (1.3-7.7) k/uL Lymphocytes # (Manual) 0.21 L (1.0-4.8) k/uL Metamyelocytes # (Man) 0.21 H (0) k/uL PT 12.2 H (9.0-12.0) sec INR 1.2 H (<1.2) Sodium 133 L (137-145) mmol/L Carbon Dioxide 19 L (22-30) mmol/L Glucose 103 H (74-99) mg/dL Plasma Lactic Acid Jordi (0.7-2.0) mmol/L Total Bilirubin 2.0 H (0.2-1.3) mg/dL 11/29/22 Range/Units 08:10 Neutrophils # (Manual) (1.3-7.7) k/uL Lymphocytes # (Manual) (1.0-4.8) k/uL Metamyelocytes # (Man) (0) k/uL PT (9.0-12.0) sec INR (<1.2) Sodium (137-145) mmol/L Carbon Dioxide (22-30) mmol/L Glucose (74-99) mg/dL Plasma Lactic Acid Jordi 4.4 H* (0.7-2.0) mmol/L Total Bilirubin (0.2-1.3) mg/dL Microbiology - Last 24 Hours (Table) 11/29/22 09:35 Blood Culture Gram Stain - Preliminary Blood 11/29/22 08:10 Blood Culture Gram Stain - Preliminary Blood Assessment and Plan Assessment: Acute appendicitis Sepsis with fever and tachycardia Gram-negative bacilli (2 ) bacteremia Hypotension secondary to above History of hypertension Obesity with BMI of 31.2 Plan: Continue with antibiotic Flagyl and Zosyn, follow-up culture results Continue with Actos hydration with normal AT 130 mL per hour Continue with Zosyn alone. Blood culture Pain management Surgery primary team on the case for surgical excision of this appendicitis Labs and medication were reviewed.. Continue same treatment. Continue with symptomatic treatment. Resume home medication. Monitor labs and vitals. DVT and GI prophylaxis. Further recommendations as per clinical course of the patient DVT prophylaxis: Subcutaneous heparin GI Prophylaxis: Pepcid Prognosis is guarded Thank you for your consult, we will follow up
[2022-11-30] MEDS: ACETAMINOPHEN TAB 325 MG TAB PO PRN ×2 (14:03→20:17)
[2022-11-30] MEDS: THIAMINE 100 MG TAB PO SCH (20:17)
[2022-12-01] MEDS: PIPERACILLIN-TAZOBACTAM 3.375 GM in SODIUM CHLORIDE 0.9% 100 ML IVPB SCH ×3 (03:09→18:11)
[2022-12-01] MEDS: SODIUM CHLORIDE 0.9% 1,000 ML IV SCH ×3 (03:09→18:10)
[2022-12-01 07:44] LABS: Basophils % (A) 0 %; Eosinophils # (A) 0.1 k/uL (0-0.7); Eosinophils % (A) 1 %; HCT 40.1 % (39.0-53.0); HGB 13.5 gm/dL (13.0-17.5); Lymphocytes # (A) 0.2 k/uL (1.0-4.8); Lymphocytes % (A) 3 %; MCHC 33.6 g/dL (31.0-37.0); Mean Platelet Volume 8.9; Monocytes # (A) 0.3 k/uL (0-1.0); Monocytes % (A) 4 %; Neutrophils # (A) 6.4 k/uL (1.3-7.7); Neutrophils % (A) 90 %; RBC 4.22 m/uL (4.30-5.90); WBC 7.1 k/uL (3.8-10.6)
[2022-12-01 08:08] LABS: African American GFR (CKD) >90 (>60 ml/min/1.73 sqM); Anion Gap 8 mmol/L; Blood Urea Nitrogen 14 mg/dL (9-20); Calcium 7.6 mg/dL (8.4-10.2); Carbon Dioxide 22 mmol/L (22-30); Chloride 103 mmol/L (98-107); Glucose 101 mg/dL (74-99); Non-African American GFR(CKD) 89 (>60 ml/min/1.73 sqM); Potassium 3.6 mmol/L (3.5-5.1); Sodium 133 mmol/L (137-145)
[2022-12-01 08:39] LABS: Platelet Count 80 k/uL (150-450)
[2022-12-01] MEDS: metroNIDAZOLE-NS PMX 500 MG in SALINE 1 100ML.BAG IVPB SCH ×3 (09:07→23:33)
[2022-12-01] MEDS: HEPARIN SODIUM,PORCINE 5,000 UNIT/ML 1 ML VIAL SQ SCH ×2 (09:08→21:17)
[2022-12-01] MEDS: FAMOTIDINE 20 MG/2 ML VIAL IV SCH ×2 (09:08→21:17)
--- NOTE | 2022-12-01 09:49 | P.PN ---
Subjective Progress Note Date: 12/01/22 Principal diagnosis: Acute appendicitis Patient had fevers last night of 11.6. He'll about the same as yesterday. He says he does not feel ready to go home. Appetite is minimal. No nausea or vomiting however. Abdominal discomfort improving. Objective - Vital Signs Vital signs: Vital Signs Temp 101.6 F H 12/01/22 07:08 Pulse 67 12/01/22 07:08 Resp 18 12/01/22 07:08 BP 145/88 12/01/22 07:08 Pulse Ox 93 L 12/01/22 09:46 FiO2 21 12/01/22 09:46 Intake & Output 11/30/22 12/01/22 12/01/22 18:59 06:59 18:59 Output Total 1500 Balance -1500 Output: Urine 1500 Other: Voiding Method Toilet Urinal # Voids 2 - Exam Abdomen: Soft, minimal distention, mild incisional tenderness, mild right lower quadrant tenderness - Labs CBC & Chem 7: 12/01/22 06:55 12/01/22 06:55 Labs: Abnormal Lab Results - Last 24 Hours (Table) 12/01/22 12/01/22 Range/Units 06:55 06:55 RBC 4.22 L (4.30-5.90) m/uL Plt Count 80 L (150-450) k/uL Lymphocytes # 0.2 L (1.0-4.8) k/uL Sodium 133 L (137-145) mmol/L Glucose 101 H (74-99) mg/dL Calcium 7.6 L (8.4-10.2) mg/dL Microbiology - Last 24 Hours (Table) 11/29/22 08:10 Blood Culture Gram Stain - Preliminary Blood Blood Culture - Preliminary Gram Neg Bacilli Gram Neg Bacilli#2 11/29/22 09:35 Blood Culture Gram Stain - Preliminary Blood Assessment and Plan (1) Sepsis Narrative/Plan: Patient doing slightly better today. He did have fever of 11.6. White blood cell count is now normal. He did have 2 blood cultures positive for E. coli and Klebsiella. Patient remains on Flagyl and Zosyn. Continue antibiotics. Continue diet. Monitor for persistent fevers. Current Visit: Yes Status: Acute Code(s): A41.9 - SEPSIS, UNSPECIFIED ORGANISM SNOMED Code(s): 91829092
--- NOTE | 2022-12-01 12:05 | P.CONS ---
History of Present Illness - Reason for Consult Consult date: 11/30/22 - History of Present Illness Patient is a 67-year-old male with a past medical history significant for hypertension patient presented to hospital 11/29/2022 for abdominal pain has been going on for about a day and a half before presentation to the hospital patient the pain was mostly the right lower quadrant area describing it to be sharp intense and almost 10 out of 10 in severity by the time he present to the hospital with similar duration to them likely area did have associated nausea but no vomiting also complaining of sweats and chills associated with it with the same the patient was evaluated on presentation to the hospital patient did have a low-grade fever of 99.8 subsequently spiked a fever of 105.6 F and did have a fever of 102.7 F this morning patient did have a CT of abdominal pelvis that was suggestive of appendicitis with moderate local inflammation stranding surrounding edema and mild pelvic free fluid likely reactive to the above inflammation patient was taken to the OR last evening at this patient is status post laparoscopic appendectomy for gangrenous appendicitis patient did have a blood cultures obtained growing 2 different gram-negative bacilli patient is currently on Zosyn infectious disease was consulted for further management of antibiotic therapy, patient did have a white count of 12,000 this morning with a left shift creatinine is normal at 0.8 lactic acid admission was four-point 4 repeat is normal liver enzymes are normal Past Medical History Past Medical History: Hypertension History of Any Multi-Drug Resistant Organisms: None Reported Past Surgical History: No Surgical Hx Reported Past Anesthesia/Blood Transfusion Reactions: No Reported Reaction Past Psychological History: No Psychological Hx Reported Smoking Status: Never smoker Past Alcohol Use History: None Reported Past Drug Use History: None Reported Medications and Allergies Home Medications Medication Instructions Recorded Confirmed Type ALPRAZolam [Xanax] 0.25 mg PO DAILY PRN 11/29/22 11/29/22 History ALPRAZolam [Xanax] 0.25 mg PO HS 11/29/22 11/29/22 History Magnesium Oxide [Magnesium] 500 mg PO HS 11/29/22 11/29/22 History Sildenafil Citrate [Sildenafil] 20 mg PO DAILY PRN 11/29/22 11/29/22 History Thiamine [Vitamin B-1] 100 mg PO HS 11/29/22 11/29/22 History amLODIPine [Norvasc] 10 mg PO HS 11/29/22 11/29/22 History Allergies Allergy/AdvReac Type Severity Reaction Status Date / Time benazepril AdvReac Cough Verified 11/29/22 16:49 Physical Exam Vitals: Vital Signs Temp Pulse Resp BP Pulse Ox 11/30/22 12:03 92 L 11/30/22 07:17 97.9 F 54 L 18 106/70 97 11/30/22 00:54 54 L 99/63 96 11/30/22 00:40 58 L 95/59 96 11/30/22 00:25 56 L 16 93/56 95 11/30/22 00:10 59 L 16 94/59 95 11/29/22 23:39 63 16 92/58 89 L 11/29/22 23:24 65 96/51 90 L 11/29/22 23:09 65 96/60 91 L 11/29/22 22:55 61 94/62 91 L 11/29/22 22:39 66 101/66 11/29/22 22:13 72 16 91/58 98 11/29/22 21:58 63 16 92/68 98 11/29/22 21:43 62 16 82/63 98 11/29/22 21:28 64 16 91/57 97 11/29/22 21:13 65 18 97/62 97 11/29/22 20:58 67 18 86/57 96 11/29/22 20:43 68 16 83/58 96 11/29/22 20:28 71 16 75/54 95 11/29/22 20:13 68 16 80/56 96 11/29/22 19:58 72 16 78/55 95 11/29/22 19:43 70 16 79/58 95 11/29/22 19:28 67 16 85/61 96 11/29/22 19:13 71 16 91/55 92 L 11/29/22 18:58 72 16 87/54 94 L 11/29/22 18:43 102 F H 86 16 91/60 93 L 11/29/22 17:00 105.6 F H 11/29/22 16:52 103.1 F H 105 H 18 111/55 91 L 11/29/22 14:35 98.7 F 64 18 103/68 92 L Intake and Output 11/29/22 11/30/22 11/30/22 22:59 06:59 14:59 Intake Total 3450 Output Total 25 Balance 3425 Intake: IV 3450 Output: Estimated Blood Loss 25 Other: # Voids 1 2 Weight 104.326 kg Results CBC & Chem 7: 12/01/22 06:55 12/01/22 06:55 Labs: Abnormal Lab Results - Last 24 Hours (Table) 11/30/22 11/30/22 Range/Units 07:51 07:51 WBC 12.0 H (3.8-10.6) k/uL RBC 4.18 L (4.30-5.90) m/uL Plt Count 103 L (150-450) k/uL Neutrophils # 11.1 H (1.3-7.7) k/uL Lymphocytes # 0.4 L (1.0-4.8) k/uL Sodium 135 L (137-145) mmol/L Calcium 7.7 L (8.4-10.2) mg/dL Microbiology - Last 24 Hours (Table) 11/29/22 08:10 Blood Culture Gram Stain - Preliminary Blood Blood Culture - Preliminary Gram Neg Bacilli Gram Neg Bacilli#2 11/29/22 09:35 Blood Culture Gram Stain - Preliminary Blood Assessment and Plan Plan: 1patient present to hospital with sepsis in this patient with a fever tachycardia elevated lactic acid and leukocytosis source is complicated appendicitis in this patient with evidence of gangrenous appendicitis that is post laparoscopic appendectomy. 2gram-negative bacteremia source likely abdominal/gangrenous appendicitis. 3we will keep the patient on Zosyn 3.375 g every 8 hours should provide adequate antibiotic coverage for underlying infection and bacteremia we will follow on clinical condition and cultures to further adjust medication if needed Thank you for this consultation we will follow the patient along with you Dictation was produced using [employer] dictation software. please excuse any grammatical, word or spelling errors., Time with Patient: Greater than 30
--- NOTE | 2022-12-01 12:30 | P.PN ---
Subjective This is a pleasant 67 years old male with past medical history of hypertension. 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 He had regular bowel movement yesterday morning. He has low appetite and he vomited a little bit yesterday. He denies any chest pain or dyspnea. Patient says that he can go upstairs downstairs with no difficulty. No dyspnea No other neurological urinary symptoms. No headache or dizziness. He denies smoking alcohol or illicit drugs. While we do not encounter patient was experiencing chills he had a fever of 100.4. Blood pressure low-normal 87/59 and currently 100/60 11/30/2022 patient is sitting up in bed. He is status post laparoscopic cholecystectomy appendectomy. Today is postop day #1. He feels better, he feels some pressure or mild pain in the right lower quadrant, he is on liquid diet this morning. He did not have bowel movement yet. Patient was updated about his problem on positive blood culture and he verbalized understanding and acceptance with the treatment plan. Patient currently covered with Zosyn and Flagyl and blood culture is positive for gram-negative bacilli. I agree with infectious disease consult. Blood pressure is soft but is improving. Continue with aggressive hydration currently on normal saline with 130 mL/h 12/01/2022 Patient looks more comfortable, more energetic today, pleasant not in distress. No abdominal pain. He is on regular diet now. No bowel movement yet. He was able to take a shower this morning Patient still has fever of 101 today but is improving compared to yesterday 105.6 Continue with Zosyn Objective - Vital Signs Vital signs: Vital Signs Temp 101.6 F H 12/01/22 07:08 Pulse 67 12/01/22 07:08 Resp 18 12/01/22 07:08 BP 145/88 12/01/22 07:08 Pulse Ox 93 L 12/01/22 07:08 FiO2 Intake & Output 11/30/22 12/01/22 12/01/22 18:59 06:59 18:59 Output Total 1500 Balance -1500 Output: Urine 1500 Other: Voiding Method Toilet Urinal # Voids 2 - Exam GENERAL: The patient is alert and oriented x3, not in any acute distress. Well developed, well nourished. HEENT: Pupils are round and equally reacting to light. EOMI. No scleral icterus. No conjunctival pallor. Normocephalic, atraumatic. No pharyngeal erythema. No thyromegaly. CARDIOVASCULAR: S1 and S2 present. No murmurs, rubs, or gallops. PULMONARY: Chest is clear to auscultation, no wheezing , no crackles. ABDOMEN: Soft, nontender, nondistended, normoactive bowel sounds. No palpable organomegaly. MUSCULOSKELETAL: No joint swelling or deformity. EXTREMITIES: No cyanosis, clubbing, or pedal edema. NEUROLOGICAL: Gross neurological examination did not reveal any focal deficits. SKIN: No rashes. no petechiae. - Labs CBC & Chem 7: 12/01/22 06:55 12/01/22 06:55 Labs: Abnormal Lab Results - Last 24 Hours (Table) 12/01/22 12/01/22 Range/Units 06:55 06:55 RBC 4.22 L (4.30-5.90) m/uL Plt Count 80 L (150-450) k/uL Lymphocytes # 0.2 L (1.0-4.8) k/uL Sodium 133 L (137-145) mmol/L Glucose 101 H (74-99) mg/dL Calcium 7.6 L (8.4-10.2) mg/dL Microbiology - Last 24 Hours (Table) 11/29/22 08:10 Blood Culture Gram Stain - Preliminary Blood Blood Culture - Preliminary Gram Neg Bacilli Gram Neg Bacilli#2 11/29/22 09:35 Blood Culture Gram Stain - Preliminary Blood Assessment and Plan Assessment: Acute appendicitis Sepsis with fever and tachycardia Gram-negative bacilli (2 ) bacteremia Hypotension secondary to above History of hypertension Obesity with BMI of 31.2 Plan: Continue with antibiotic Flagyl and Zosyn, follow-up culture results Continue with Actos hydration with normal AT 130 mL per hour Continue with Zosyn alone. Blood culture Pain management Surgery primary team on the case for surgical excision of this appendicitis Labs and medication were reviewed.. Continue same treatment. Continue with symptomatic treatment. Resume home medication. Monitor labs and vitals. DVT and GI prophylaxis. Further recommendations as per clinical course of the patient DVT prophylaxis: Subcutaneous heparin GI Prophylaxis: Pepcid Prognosis is guarded Thank you for your consult, we will follow up
[2022-12-01] MEDS: ACETAMINOPHEN TAB 325 MG TAB PO PRN (13:42)
[2022-12-01] MEDS ORDERED: KETOROLAC 15 MG/ML 1 ML VIAL IVP STA (14:51)
[2022-12-01] MEDS ORDERED: ACETAMINOPHEN TAB 325 MG TAB PO STA (14:52)
--- NOTE | 2022-12-01 15:50 | P.PN ---
Subjective Progress Note Date: 12/01/22 Principal diagnosis: Sepsis, Appendicitis/bacteremia Patient is a 67-year-old male presenting the hospital with abdominal pain has been diagnosed with a gangrenous appendicitis status post laparoscopic appendectomy also have a positive blood culture with gram-negative bacilli x2. On today's evaluation that is 12/01/2022 patient is still running a fever with a temperature of 101.6 F this morning patient is not tachycardic and is breathing comfortably on room air patient did mention abdominal pain has decreased in intensity and is feeling slight better today no nausea no vomiting no chest pain shortness of breath or cough. Patient white count is normalized to 7.1 creatinine 0.88 blood cultures with E. coli that is a sensitive pathogen there is another gram-negative with sensitivities pending, per pharmacist note its Klebsiella with no resistant gene Objective - Vital Signs Vital signs: Vital Signs Temp 100.3 F H 12/01/22 08:20 Pulse 67 12/01/22 07:08 Resp 18 12/01/22 07:08 BP 145/88 12/01/22 07:08 Pulse Ox 93 L 12/01/22 09:46 FiO2 21 12/01/22 09:46 Intake & Output 11/30/22 12/01/22 12/01/22 18:59 06:59 18:59 Output Total 1500 Balance -1500 Output: Urine 1500 Other: Voiding Method Toilet Urinal # Voids 2 - Exam GENERAL DESCRIPTION: Elderly male lying in bed in no distress RESPIRATORY SYSTEM: Unlabored breathing , decreased breath sounds at bases HEART: S1 S2 regular rate and rhythm ,no loud murmurs ABDOMEN: Soft , mild tenderness EXTREMITIES: No edema feet - Labs CBC & Chem 7: 12/01/22 06:55 12/01/22 06:55 Labs: Abnormal Lab Results - Last 24 Hours (Table) 12/01/22 12/01/22 Range/Units 06:55 06:55 RBC 4.22 L (4.30-5.90) m/uL Plt Count 80 L (150-450) k/uL Lymphocytes # 0.2 L (1.0-4.8) k/uL Sodium 133 L (137-145) mmol/L Glucose 101 H (74-99) mg/dL Calcium 7.6 L (8.4-10.2) mg/dL Microbiology - Last 24 Hours (Table) 11/29/22 08:10 Blood Culture Gram Stain - Preliminary Blood Blood Culture - Preliminary Gram Neg Bacilli Gram Neg Bacilli#2 Assessment and Plan (1) Gram-negative bacteremia Current Visit: Yes Status: Acute Code(s): R78.81 - BACTEREMIA SNOMED Code(s): 209754763275 (2) Appendicitis Current Visit: Yes Status: Acute Code(s): K37 - UNSPECIFIED APPENDICITIS SNOMED Code(s): 00648765 (3) Sepsis Current Visit: Yes Status: Acute Code(s): A41.9 - SEPSIS, UNSPECIFIED ORGANISM SNOMED Code(s): 94800498 Plan: 1patient present to hospital with sepsis in this patient with a fever t achycardia elevated lactic acid and leukocytosis source is complicated appendicitis in this patient with evidence of gangrenous appendicitis that is post laparoscopic appendectomy. 2patient with E. coli and Klebsiella bacteremia that is a sensitive pathogen per pharmacist note sensitivities on E. coli available Klebsiella are currently pending 3patient is still running a failure slightly concerning however his white count is normalized, we will repeat his blood culture continue with the Zosyn if any further fever may benefit from a repeat CT abdominal pelvis at the bedside multiple questions were answered Dictation was produced using [employer] dictation software. please excuse any gramm atical, word or spelling errors.,
[2022-12-01] MEDS: ALPRAZolam 0.25 MG TAB PO PRN (21:17)
[2022-12-01] MEDS: THIAMINE 100 MG TAB PO SCH (21:17)
[2022-12-02] MEDS: PIPERACILLIN-TAZOBACTAM 3.375 GM in SODIUM CHLORIDE 0.9% 100 ML IVPB SCH ×3 (02:41→18:30)
[2022-12-02] MEDS: SODIUM CHLORIDE 0.9% 1,000 ML IV SCH ×3 (02:41→16:01)
[2022-12-02] MEDS: metroNIDAZOLE-NS PMX 500 MG in SALINE 1 100ML.BAG IVPB SCH ×2 (08:20→16:00)
[2022-12-02] MEDS: HEPARIN SODIUM,PORCINE 5,000 UNIT/ML 1 ML VIAL SQ SCH ×2 (08:20→21:21)
[2022-12-02] MEDS: FAMOTIDINE 20 MG/2 ML VIAL IV SCH ×2 (08:20→21:21)
[2022-12-02] MEDS: ACETAMINOPHEN TAB 325 MG TAB PO PRN (08:21)
--- NOTE | 2022-12-02 13:11 | P.PN ---
Subjective Progress Note Date: 12/02/22 This is a pleasant 67 years old male with past medical history of hypertension. 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 He had regular bowel movement yesterday morning. He has low appetite and he vomited a little bit yesterday. He denies any chest pain or dyspnea. Patient says that he can go upstairs downstairs with no difficulty. No dyspnea No other neurological urinary symptoms. No headache or dizziness. He denies smoking alcohol or illicit drugs. While we do not encounter patient was experiencing chills he had a fever of 100.4. Blood pressure low-normal 87/59 and currently 100/60 11/30/2022 patient is sitting up in bed. He is status post laparoscopic cholecystectomy appendectomy. Today is postop day #1. He feels better, he feels some pressure or mild pain in the right lower quadrant, he is on liquid diet this morning. He did not have bowel movement yet. Patient was updated about his problem on positive blood culture and he verbalized understanding and acceptance with the treatment plan. Patient currently covered with Zosyn and Flagyl and blood culture is positive for gram-negative bacilli. I agree with infectious disease consult. Blood pressure is soft but is improving. Continue with aggressive hydration currently on normal saline with 130 mL/h 12/01/2022 Patient looks more comfortable, more energetic today, pleasant not in distress. No abdominal pain. He is on regular diet now. No bowel movement yet. He was able to take a shower this morning Patient still has fever of 101 today but is improving compared to yesterday 105.6 Continue with Zosyn 12/02. Patient seen and examined. Patient had a fever of 100.5 this morning. Denies abdominal pain. Denies any blood in the stools. REVIEW OF SYSTEMS: CONSTITUTIONAL: No fever, no malaise,. CARDIOVASCULAR: No chest pain, no palpitations, no syncope. PULMONARY: No shortness of breath, no cough, GASTROINTESTINAL: No diarrhea, no nausea, no vomiting, no abdominal pain. NEUROLOGICAL: No headaches, no weakness, PHYSICAL EXAMINATION: GENERAL: The patient is alert and oriented x3, not in any acute distress. Well developed, well nourished. HEENT: Pupils are round and equally reacting to light. EOMI. No scleral icterus. No conjunctival pallor. Normocephalic, atraumatic. No pharyngeal erythema. No thyromegaly. CARDIOVASCULAR: S1 and S2 present. No murmurs, rubs, or gallops. PULMONARY: Chest is clear to auscultation, no wheezing or crackles. ABDOMEN: Soft, nontender, nondistended, normoactive bowel sounds. No palpable organomegaly. MUSCULOSKELETAL: No joint swelling or deformity. EXTREMITIES: No cyanosis, clubbing, or pedal edema. NEUROLOGICAL: Gross neurological examination did not reveal any focal deficits. SKIN: No rashes. Assessment and plan Acute appendicitis Sepsis with fever and tachycardia Gram-negative bacilli (2 ) bacteremia Hypotension secondary to above History of hypertension Obesity with BMI of 31.2 Monitor vital signs Monitor CBC Monitor CMP Continue pain management Continue IV fluids Continue antiemetics Continue IV Zosyn and Flagyl Surgery following ID following Labs and medication were reviewed.. Continue same treatment. Continue with symptomatic treatment. Resume home medication. Monitor labs and vitals. DVT and GI prophylaxis. Further recommendations as per clinical course of the patient Dictation was produced using [employer] dictation software. please excuse any grammatical, word or spelling errors. Objective - Vital Signs Vital signs: Vital Signs Temp 100.5 F H 12/02/22 07:36 Pulse 63 12/02/22 07:36 Resp 15 12/02/22 07:36 BP 147/89 12/02/22 07:36 Pulse Ox 95 12/02/22 08:34 FiO2 21 12/01/22 09:46 Intake & Output 12/01/22 12/02/22 12/02/22 18:59 06:59 18:59 Output Total 202 1000 Balance -202 -1000 Output: Urine 201 1000 Stool 1 Other: Voiding Method Toilet # Voids 3 - Labs CBC & Chem 7: 12/01/22 06:55 12/01/22 06:55 Labs: Microbiology - Last 24 Hours (Table) 11/29/22 09:35 Blood Culture Gram Stain - Preliminary Blood Blood Culture - Preliminary Escherichia coli Gram Neg Bacilli 11/29/22 08:10 Blood Culture Gram Stain - Preliminary Blood Blood Culture - Preliminary Escherichia coli Gram Neg Bacilli
--- NOTE | 2022-12-02 13:20 | P.PN ---
Subjective Progress Note Date: 12/02/22 CHIEF COMPLAINT: Gangrenous appendicitis HISTORY OF PRESENT ILLNESS: Patient is postop day #3 for gangrenous appendicitis. 2 positive blood cultures for E. coli. Patient continues to have fevers. Temp this morning 100.5. Labs pending for today currently on regular diet PHYSICAL EXAM: VITAL SIGNS: Reviewed. GENERAL: Well-developed in no acute distress. ABDOMEN: Soft. Mildly distended. Minimal incisional tenderness. Incisions clean dry and intact NEUROLOGIC: Alert and oriented. Cranial nerves II through XII grossly intact. ASSESSMENT: 1. Acute gangrenous appendicitis status post left scalp appendectomy 2. Sepsis 3. Bacteremia PLAN: -Continue antibiotics -Continue regular diet -Continue to monitor fevers -Repeat CBC in a.m. -Continue pain management -Encourage patient to ambulate and use incentive spirometer -DVT prophylaxis subcu heparin Physician Client Application Support Specialist note has been reviewed by physician. Signing provider agrees with the documented findings, assessment, and plan of care. I have personally seen and examined the patient, reviewed the ACADEMIC INTERVENTIONIST /PAs history, exam and MDM and agree with the assessment and plan as written. Based on total visit time, I have performed more than 50% of the visit. As above: Patient feels better today. Tolerating diet. Still having low-grade fevers. Continue regular diet. Continue antibiotics. Possible discharge tomorrow. Would like to see the patient afebrile for 24 hours. Objective - Vital Signs Vital signs: Vital Signs Temp 100.5 F H 12/02/22 07:36 Pulse 63 12/02/22 07:36 Resp 15 12/02/22 07:36 BP 147/89 12/02/22 07:36 Pulse Ox 95 12/02/22 08:34 FiO2 21 12/01/22 09:46 Intake & Output 12/01/22 12/02/22 12/02/22 18:59 06:59 18:59 Output Total 202 1000 450 Balance -202 -1000 -450 Output: Urine 201 1000 450 Stool 1 Other: Voiding Method Toilet # Voids 3 - Labs CBC & Chem 7: 12/01/22 06:55 12/01/22 06:55 Labs: Microbiology - Last 24 Hours (Table) 11/29/22 09:35 Blood Culture Gram Stain - Preliminary Blood Blood Culture - Preliminary Escherichia coli Gram Neg Bacilli 08/25/23 08:10 Blood Culture Gram Stain - Preliminary Blood Blood Culture - Preliminary Escherichia coli Gram Neg Bacilli
--- NOTE | 2022-12-02 17:56 | P.PN ---
Subjective Progress Note Date: 12/02/22 Principal diagnosis: Sepsis, Appendicitis/bacteremia Patient is a 67-year-old male presenting the hospital with abdominal pain has been diagnosed with a gangrenous appendicitis status post laparoscopic appendectomy also have a positive blood culture with gram-negative bacilli x2. On today's evaluation that is 12/02/2022 patient did have improvement in his urinary pattern and did have a low-grade fever 100.5F this morning, the patient is breathing comfortably on room air patient did mention abdominal pain has decreased in intensity and is feeling slight better today no nausea no vomiting no chest pain shortness of breath or cough. Patient white count is normalized to 7.1 as of yesterday no CBC was done today, creatinine 0.88 blood cultures with E. coli that is a sensitive pathogen there is another gram-negative with sensitivities pending, per pharmacist note its Klebsiella with no resistant gene Objective - Vital Signs Vital signs: Vital Signs Temp 100.5 F H 12/02/22 07:36 Pulse 63 12/02/22 07:36 Resp 15 12/02/22 07:36 BP 147/89 12/02/22 07:36 Pulse Ox 95 12/02/22 08:34 FiO2 21 12/01/22 09:46 Intake & Output 12/01/22 12/02/22 12/02/22 18:59 06:59 18:59 Output Total 202 1000 Balance -202 -1000 Output: Urine 201 1000 Stool 1 Other: Voiding Method Toilet # Voids 3 - Exam GENERAL DESCRIPTION: Elderly male lying in bed in no distress RESPIRATORY SYSTEM: Unlabored breathing , decreased breath sounds at bases HEART: S1 S2 regular rate and rhythm ,no loud murmurs ABDOMEN: Soft , mild tenderness EXTREMITIES: No edema feet - Labs CBC & Chem 7: 12/01/22 06:55 12/01/22 06:55 Labs: Microbiology - Last 24 Hours (Table) 11/29/22 09:35 Blood Culture Gram Stain - Preliminary Blood Blood Culture - Preliminary Escherichia coli Gram Neg Bacilli 11/29/22 08:10 Blood Culture Gram Stain - Preliminary Blood Blood Culture - Preliminary Escherichia coli Gram Neg Bacilli Assessment and Plan (1) Gram-negative bacteremia Current Visit: Yes Status: Acute Code(s): R78.81 - BACTEREMIA SNOMED Code(s): 320292513106 (2) Appendicitis Current Visit: Yes Status: Acute Code(s): K37 - UNSPECIFIED APPENDICITIS SNOMED Code(s): 09829136 (3) Sepsis Current Visit: Yes Status: Acute Code(s): A41.9 - SEPSIS, UNSPECIFIED ORGANISM SNOMED Code(s): 37202952 Plan: 1patient present to hospital with sepsis in this patient with a fever tachycardia elevated lactic acid and leukocytosis source is complicated appendicitis in this patient with evidence of gangrenous appendicitis that is post laparoscopic appendectomy. 2patient with E. coli and Klebsiella bacteremia that is a sensitive pathogen per pharmacist note sensitivities on E. coli available Klebsiella are currently pending 3patient did have improvement in his fever pattern and the patient white count normal as of yesterday we will continue the patient on Zosyn and repeat CBC and CRP with a.m. lab once the patient is afebrile for 24 hour hopefully finishing therapy with oral antibiotics Dictation was produced using [employer] dictation software. please excuse any grammatical, word or spelling errors., Time with Patient: Less than 30
[2022-12-02] MEDS: ALPRAZolam 0.25 MG TAB PO PRN (21:21)
[2022-12-02] MEDS: THIAMINE 100 MG TAB PO SCH (21:21)
[2022-12-02 23:00] LABS: Basophils # (A) 0.06 X 10*3/uL (0.00-0.10); Eosinophils # (A) 0.05 X 10*3/uL (0.04-0.35); Eosinophils % (A) 0.8 %; HCT 39.1 % (39.6-50.0); Lymphocytes # (A) 0.51 X 10*3/uL (0.90-5.00); Lymphocytes % (A) 8.2 %; MCH 31.6 pg (27.0-32.0); MCHC 33.2 d/dL (32.0-37.0); MCV 95.1 FL (80.0-97.0); NRBC Per 100 WBC 0 X 10*3/uL (0.00-0.01); Neutrophils # (A) 5.04 X 10*3/uL (1.80-7.70); Neutrophils % (A) 80.6 %; Platelet Count 86 X 10*3/uL (140-440); RBC 4.11 X 10*6/uL (4.40-5.60); RBC Morphology Normal (Normal); RDW 13.2 % (11.5-14.5); WBC 6.25 X 10*3/uL (4.50-10.00)
[2022-12-03] MEDS: metroNIDAZOLE-NS PMX 500 MG in SALINE 1 100ML.BAG IVPB SCH ×3 (00:41→16:48)
[2022-12-03] MEDS: SODIUM CHLORIDE 0.9% 1,000 ML IV SCH ×2 (00:45→19:23)
[2022-12-03] MEDS: PIPERACILLIN-TAZOBACTAM 3.375 GM in SODIUM CHLORIDE 0.9% 100 ML IVPB SCH ×3 (03:02→21:21)
[2022-12-03 07:03] LABS: Basophils % (A) 1 %; Eosinophils # (A) 0.1 k/uL (0-0.7); Eosinophils % (A) 2 %; HCT 40.6 % (39.0-53.0); HGB 13.7 gm/dL (13.0-17.5); Lymphocytes % (A) 14 %; MCH 31.5 pg (25.0-35.0); MCHC 33.7 g/dL (31.0-37.0); MCV 93.5 fL (80.0-100.0); Mean Platelet Volume 8.7; Monocytes # (A) 0.6 k/uL (0-1.0); Monocytes % (A) 8 %; Neutrophils # (A) 5.3 k/uL (1.3-7.7); Neutrophils % (A) 73 %; Platelet Count 107 k/uL (150-450); RBC 4.35 m/uL (4.30-5.90); RDW 12.8 % (11.5-15.5); WBC 7.2 k/uL (3.8-10.6)
[2022-12-03 07:22] LABS: ALT 80 U/L (4-49); AST 93 U/L (17-59); African American GFR (CKD) >90 (>60 ml/min/1.73 sqM); Albumin/Globulin Ratio 1.2; Alkaline Phosphatase 141 U/L (38-126); Anion Gap 7 mmol/L; Blood Urea Nitrogen 11 mg/dL (9-20); C Reactive Protein 8.5 mg/dL (<1.0); Calcium 7.9 mg/dL (8.4-10.2); Carbon Dioxide 24 mmol/L (22-30); Chloride 103 mmol/L (98-107); Globulin 2.6 g/dL; Glucose 104 mg/dL (74-99); Non-African American GFR(CKD) 90 (>60 ml/min/1.73 sqM); Potassium 3.6 mmol/L (3.5-5.1); Sodium 134 mmol/L (137-145); Total Bilirubin 0.8 mg/dL (0.2-1.3); Total Protein 5.6 g/dL (6.3-8.2)
[2022-12-03] MEDS: FAMOTIDINE 20 MG/2 ML VIAL IV SCH ×2 (08:04→21:19)
[2022-12-03] MEDS: HEPARIN SODIUM,PORCINE 5,000 UNIT/ML 1 ML VIAL SQ SCH ×2 (08:08→21:19)
--- NOTE | 2022-12-03 13:48 | P.PN ---
Subjective Progress Note Date: 12/03/22 CHIEF COMPLAINT: Gangrenous appendicitis HISTORY OF PRESENT ILLNESS: Patient is postop day #4 for gangrenous appendicitis. 2 positive blood cultures for E. coli. Patient's fevers have improved. WBC 7.2 hgb 13.7 platelets 107 mildly elevated LFTs. Repeat BCX pending. Patient reports his pain is controlled. Denies any nausea or vomiting. Tolerating diet. Positive flatus and bowel movement. PHYSICAL EXAM: VITAL SIGNS: Reviewed. GENERAL: Well-developed in no acute distress. ABDOMEN: Soft. nondistended. Minimal incisional tenderness. Incisions clean dry and intact NEUROLOGIC: Alert and oriented. Cranial nerves II through XII grossly intact. ASSESSMENT: 1. Acute gangrenous appendicitis status post left scalp appendectomy 2. Sepsis 3. Bacteremia 4. Mildly elevated LFTs possibly due to medications PLAN: -Continue antibiotics. Case discussed with infectious disease. They're re commending one more day of IV antibiotics. -Anticipate discharge tomorrow -Continue regular diet -Continue pain management -Encourage patient to ambulate and use incentive spirometer -DVT prophylaxis subcu heparin Physician [employer] Architect note has been reviewed by physician. Signing provider agrees with the documented findings, assessment, and plan of care. I have personally seen and examined the patient, reviewed the BUSINESS ARCHITECT /PAs history, exam and MDM and agree with the assessment and plan as written. Based on total visit time, I have performed more than 50% of the visit. As above: Patient doing better today. Tolerating diet. Plan discharge tomorrow on oral antibiotics. Objective - Vital Signs Vital signs: Vital Signs Temp 98.5 F 12/03/22 06:54 Pulse 51 L 12/03/22 07:40 Resp 14 12/03/22 07:40 BP 156/92 12/03/22 06:54 Pulse Ox 95 12/03/22 08:11 FiO2 21 12/01/22 09:46 Intake & Output 12/02/22 12/03/22 12/03/22 18:59 06:59 18:59 Output Total 450 1210 1 Balance -450 -1210 -1 Output: Urine 450 1210 Stool 1 Other: Voiding Method Toilet Toilet # Voids 4 - Labs CBC & Chem 7: 12/03/22 06:26 12/03/22 06:26 Labs: Abnormal Lab Results - Last 24 Hours (Table) 12/02/22 12/03/22 12/03/22 Range/Units 06:59 06:26 06:26 RBC 4.11 L (4.40-5.60) X 10*6/uL Hct 39.1 L (39.6-50.0) % Plt Count 86 L 107 L (140-440) X 10*3/uL Lymphocytes # 0.51 L (0.90-5.00) X 10*3/uL Sodium 134 L (137-145) mmol/L Glucose 104 H (74-99) mg/dL Calcium 7.9 L (8.4-10.2) mg/dL AST 93 H (17-59) U/L ALT 80 H (4-49) U/L Alkaline Phosphatase 141 H (38-126) U/L C-Reactive Protein 8.5 H (<1.0) mg/dL Total Protein 5.6 L (6.3-8.2) g/dL Albumin 3.0 L (3.5-5.0) g/dL Microbiology - Last 24 Hours (Table) 11/29/22 09:35 Blood Culture Gram Stain - Final Blood Blood Culture - Final Escherichia coli 11/29/22 08:10 Blood Culture Gram Stain - Final Blood Blood Culture - Final Escherichia coli 12/01/22 16:27 Blood Culture - Preliminary Blood
--- NOTE | 2022-12-03 14:43 | P.PN ---
Subjective Progress Note Date: 12/03/22 This is a pleasant 67 years old male with past medical history of hypertension. 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 He had regular bowel movement yesterday morning. He has low appetite and he vomited a little bit yesterday. He denies any chest pain or dyspnea. Patient says that he can go upstairs downstairs with no difficulty. No dyspnea No other neurological urinary symptoms. No headache or dizziness. He denies smoking alcohol or illicit drugs. While we do not encounter patient was experiencing chills he had a fever of 100.4. Blood pressure low-normal 87/59 and currently 100/60 11/30/2022 patient is sitting up in bed. He is status post laparoscopic cholecystectomy appendectomy. Today is postop day #1. He feels better, he feels some pressure or mild pain in the right lower quadrant, he is on liquid diet this morning. He did not have bowel movement yet. Patient was updated about his problem on positive blood culture and he verbalized understanding and acceptance with the treatment plan. Patient currently covered with Zosyn and Flagyl and blood culture is positive for gram-negative bacilli. I agree with infectious disease consult. Blood pressure is soft but is improving. Continue with aggressive hydration currently on normal saline with 130 mL/h 12/01/2022 Patient looks more comfortable, more energetic today, pleasant not in distress. No abdominal pain. He is on regular diet now. No bowel movement yet. He was able to take a shower this morning Patient still has fever of 101 today but is improving compared to yesterday 105.6 Continue with Zosyn 12/02. Patient seen and examined. Patient had a fever of 100.5 this morning. Denies abdominal pain. Denies any blood in the stools. 12/03. Patient seen and examined. Continues to feel better, abdominal pain has resolved. No acute issues overnight. REVIEW OF SYSTEMS: CONSTITUTIONAL: No fever, no malaise,. CARDIOVASCULAR: No chest pain, no palpitations, no syncope. PULMONARY: No shortness of breath, no cough, GASTROINTESTINAL: No diarrhea, no nausea, no vomiting, no abdominal pain. NEUROLOGICAL: No headaches, no weakness, PHYSICAL EXAMINATION: GENERAL: The patient is alert and oriented x3, not in any acute distress. Well developed, well nourished. HEENT: Pupils are round and equally reacting to light. EOMI. No scleral icterus. No conjunctival pallor. Normocephalic, atraumatic. No pharyngeal erythema. No thyromegaly. CARDIOVASCULAR: S1 and S2 present. No murmurs, rubs, or gallops. PULMONARY: Chest is clear to auscultation, no wheezing or crackles. ABDOMEN: Soft, nontender, nondistended, normoactive bowel sounds. No palpable organomegaly. MUSCULOSKELETAL: No joint swelling or deformity. EXTREMITIES: No cyanosis, clubbing, or pedal edema. NEUROLOGICAL: Gross neurological examination did not reveal any focal deficits. SKIN: No rashes. Assessment and plan Acute appendicitis status post lap appendectomy Sepsis with fever and tachycardia Gram-negative bacilli (2 ) bacteremia Hypotension secondary to above History of hypertension Obesity with BMI of 31.2 Monitor vital signs Monitor CBC Monitor CMP Continue pain management DC fluids Continue antiemetics Continue IV Zosyn and Flagyl Surgery following ID following Labs and medication were reviewed.. Continue same treatment. Continue with symptomatic treatment. Resume home medication. Monitor labs and vitals. DVT and GI prophylaxis. Further recommendations as per clinical course of the patient Dictation was produced using [email or web address] dictation software. please excuse any grammatical, word or spelling errors. Objective - Vital Signs Vital signs: Vital Signs Temp 98.5 F 12/03/22 06:54 Pulse 51 L 12/03/22 07:40 Resp 14 12/03/22 07:40 BP 156/92 12/03/22 06:54 Pulse Ox 95 12/03/22 08:11 FiO2 21 12/01/22 09:46 Intake & Output 12/02/22 12/03/22 12/03/22 18:59 06:59 18:59 Output Total 450 1210 1 Balance -450 -1210 -1 Output: Urine 450 1210 Stool 1 Other: Voiding Method Toilet Toilet # Voids 4 - Labs CBC & Chem 7: 12/03/22 06:26 12/03/22 06:26 Labs: Abnormal Lab Results - Last 24 Hours (Table) 12/02/22 12/03/22 12/03/22 Range/Units 06:59 06:26 06:26 RBC 4.11 L (4.40-5.60) X 10*6/uL Hct 39.1 L (39.6-50.0) % Plt Count 86 L 107 L (140-440) X 10*3/uL Lymphocytes # 0.51 L (0.90-5.00) X 10*3/uL Sodium 134 L (137-145) mmol/L Glucose 104 H (74-99) mg/dL Calcium 7.9 L (8.4-10.2) mg/dL AST 93 H (17-59) U/L ALT 80 H (4-49) U/L Alkaline Phosphatase 141 H (38-126) U/L C-Reactive Protein 8.5 H (<1.0) mg/dL Total Protein 5.6 L (6.3-8.2) g/dL Albumin 3.0 L (3.5-5.0) g/dL Microbiology - Last 24 Hours (Table) 11/29/22 09:35 Blood Culture Gram Stain - Final Blood Blood Culture - Final Escherichia coli 11/29/22 08:10 Blood Culture Gram Stain - Final Blood Blood Culture - Final Escherichia coli 12/01/22 16:27 Blood Culture - Preliminary Blood
--- NOTE | 2022-12-03 17:11 | P.PN ---
Subjective Progress Note Date: 12/03/22 Principal diagnosis: Sepsis, Appendicitis/bacteremia Patient is a 67-year-old male presenting the hospital with abdominal pain has been diagnosed with a gangrenous appendicitis status post laparoscopic appendectomy also have a positive blood culture with gram-negative bacilli x2. On today's evaluation that is 12/03/2022 patient is afebrile this morning, the patient is breathing comfortably on room air, the patient denies having any chest pain shortness of breath or cough patient did mention abdominal pain has decreased in intensity and is feeling slight better today no nausea no vomiting and no diarrhea Patient white count 7.2, creatinine 0.85, blood cultures with E. coli repeat cultures so far negative Objective - Vital Signs Vital signs: Vital Signs Temp 98.5 F 12/03/22 06:54 Pulse 51 L 12/03/22 07:40 Resp 14 12/03/22 07:40 BP 156/92 12/03/22 06:54 Pulse Ox 95 12/03/22 08:11 FiO2 21 12/01/22 09:46 Intake & Output 12/02/22 12/03/22 12/03/22 18:59 06:59 18:59 Output Total 450 1210 1 Balance -450 -1210 -1 Output: Urine 450 1210 Stool 1 Other: Voiding Method Toilet Toilet # Voids 4 - Exam GENERAL DESCRIPTION: Elderly male lying in bed in no distress RESPIRATORY SYSTEM: Unlabored breathing , decreased breath sounds at bases HEART: S1 S2 regular rate and rhythm ,no loud murmurs ABDOMEN: Soft , mild tenderness EXTREMITIES: No edema feet - Labs CBC & Chem 7: 12/03/22 06:26 12/03/22 06:26 Labs: Abnormal Lab Results - Last 24 Hours (Table) 12/02/22 12/03/22 12/03/22 Range/Units 06:59 06:26 06:26 RBC 4.11 L (4.40-5.60) X 10*6/uL Hct 39.1 L (39.6-50.0) % Plt Count 86 L 107 L (140-440) X 10*3/uL Lymphocytes # 0.51 L (0.90-5.00) X 10*3/uL Sodium 134 L (137-145) mmol/L Glucose 104 H (74-99) mg/dL Calcium 7.9 L (8.4-10.2) mg/dL AST 93 H (17-59) U/L ALT 80 H (4-49) U/L Alkaline Phosphatase 141 H (38-126) U/L C-Reactive Protein 8.5 H (<1.0) mg/dL Total Protein 5.6 L (6.3-8.2) g/dL Albumin 3.0 L (3.5-5.0) g/dL Microbiology - Last 24 Hours (Table) 11/29/22 09:35 Blood Culture Gram Stain - Final Blood Blood Culture - Final Escherichia coli 11/29/22 08:10 Blood Culture Gram Stain - Final Blood Blood Culture - Final Escherichia coli 12/01/22 16:27 Blood Culture - Preliminary Blood Assessment and Plan (1) Gram-negative bacteremia Current Visit: Yes Status: Acute Code(s): R78.81 - BACTEREMIA SNOMED Code(s): 021478392379 (2) Appendicitis Current Visit: Yes Status: Acute Code(s): K37 - UNSPECIFIED APPENDICITIS SNOMED Code(s): 79313386 (3) Sepsis Current Visit: Yes Status: Acute Code(s): A41.9 - SEPSIS, UNSPECIFIED ORGANISM SNOMED Code(s): 41003424 Plan: 1patient present to hospital with sepsis in this patient with a fever tachy cardia elevated lactic acid and leukocytosis source is complicated appendicitis in this patient with evidence of gangrenous appendicitis that is post laparoscopic appendectomy. 2patient with E. coli and Klebsiella bacteremia that is a sensitive pathogen per pharmacist note sensitivities on E. coli available, Klebsiella is no longer showing on his blood culture 3patient did have improvement in his fever pattern and the patient white count normal, we will give the patient on IV Zosyn for another 24 hour before transition to oral antibiotic this was discussed with the surgical FINISHING TECHNICIAN Dictation was produced using [employer] dictation software. please excuse any grammatical, word or spelling errors.,
[2022-12-03 20:38] VITALS: RESP 16
[2022-12-03] MEDS: THIAMINE 100 MG TAB PO SCH (21:19)
[2022-12-03] MEDS: ALPRAZolam 0.25 MG TAB PO PRN (21:36)
[2022-12-04] MEDS: metroNIDAZOLE-NS PMX 500 MG in SALINE 1 100ML.BAG IVPB SCH ×3 (01:26→08:30)
[2022-12-04] MEDS: PIPERACILLIN-TAZOBACTAM 3.375 GM in SODIUM CHLORIDE 0.9% 100 ML IVPB SCH ×2 (03:15→12:58)
[2022-12-04 08:19] VITALS: BP 158/95; PULSE 52; TEMP 98.3
[2022-12-04] MEDS: HEPARIN SODIUM,PORCINE 5,000 UNIT/ML 1 ML VIAL SQ SCH (08:31)
[2022-12-04] MEDS: FAMOTIDINE 20 MG/2 ML VIAL IV SCH (08:31)
--- NOTE | 2022-12-04 12:39 | P.PN ---
Subjective Progress Note Date: 12/04/22 Principal diagnosis: Sepsis, Appendicitis/bacteremia Patient is a 67-year-old male presenting the hospital with abdominal pain has been diagnosed with a gangrenous appendicitis status post laparoscopic appendectomy also have a positive blood culture with gram-negative bacilli x2. On today's evaluation that is 12/04/2022 patient remains to be afebrile, the patient is breathing comfortably on room air, the patient denies chest pain shortness of breath or cough , the patient denies having any nausea vomiting abdominal pain has decreased in intensity and did have a bowel movement Patient white count 7.2, creatinine 0.85 as of 12/03/2022 no blood draw today, blood cultures with E. coli repeat cultures so far negative Objective - Vital Signs Vital signs: Vital Signs Temp 98.3 F 12/04/22 08:00 Pulse 52 L 12/04/22 08:00 Resp 16 12/04/22 08:00 BP 158/95 12/04/22 08:00 Pulse Ox 97 12/04/22 08:00 FiO2 21 12/01/22 09:46 Intake & Output 12/03/22 12/04/22 12/04/22 18:59 06:59 18:59 Output Total 1401 590 Balance -1401 -590 Output: Urine 1400 590 Stool 1 Other: Voiding Method Toilet - Exam GENERAL DESCRIPTION: Elderly male lying in bed in no distress RESPIRATORY SYSTEM: Unlabored breathing , decreased breath sounds at bases HEART: S1 S2 regular rate and rhythm ,no loud murmurs ABDOMEN: Soft , mild tenderness EXTREMITIES: No edema feet - Labs CBC & Chem 7: 12/03/22 06:26 12/03/22 06:26 Labs: Microbiology - Last 24 Hours (Table) 12/01/22 16:27 Blood Culture - Preliminary Blood 11/29/22 09:35 Blood Culture Gram Stain - Final Blood Blood Culture - Final Escherichia coli 11/29/22 08:10 Blood Culture Gram Stain - Final Blood Blood Culture - Final Escherichia coli Assessment and Plan (1) Gram-negative bacteremia Current Visit: Yes Status: Acute Code(s): R78.81 - BACTEREMIA SNOMED Code(s): 478333863404 (2) Appendicitis Current Visit: Yes Status: Acute Code(s): K37 - UNSPECIFIED APPENDICITIS SNOMED Code(s): 24137745 (3) Sepsis Current Visit: Yes Status: Acute Code(s): A41.9 - SEPSIS, UNSPECIFIED ORGANISM SNOMED Code(s): 30585709 Plan: 1patient present to hospital with sepsis in this patient with a fever tachycardia elevated lactic acid and leukocytosis source is complicated appendicitis in this patient with evidence of gangrenous appendicitis that is post laparoscopic appendectomy. 2patient with E. coli and Klebsiella bacteremia that is a sensitive pathogen per pharmacist note sensitivities on E. coli available, Klebsiella is no longer showing on his blood culture 3patient did have improvement in his fever pattern and the patient white count normal, plan is to finish therapy with oral Cipro and Flagyl 10 days prescription was sent to the pharmacy and close outpatient follow-up Dictation was produced using [employer] dictation software. please excuse any gr ammatical, word or spelling errors.,
--- NOTE | 2022-12-04 12:46 | P.PN ---
Subjective Progress Note Date: 12/04/22 This is a pleasant 67 years old male with past medical history of hypertension. 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 He had regular bowel movement yesterday morning. He has low appetite and he vomited a little bit yesterday. He denies any chest pain or dyspnea. Patient says that he can go upstairs downstairs with no difficulty. No dyspnea No other neurological urinary symptoms. No headache or dizziness. He denies smoking alcohol or illicit drugs. While we do not encounter patient was experiencing chills he had a fever of 100.4. Blood pressure low-normal 87/59 and currently 100/60 11/30/2022 patient is sitting up in bed. He is status post laparoscopic cholecystectomy appendectomy. Today is postop day #1. He feels better, he feels some pressure or mild pain in the right lower quadrant, he is on liquid diet this morning. He did not have bowel movement yet. Patient was updated about his problem on positive blood culture and he verbalized understanding and acceptance with the treatment plan. Patient currently covered with Zosyn and Flagyl and blood culture is positive for gram-negative bacilli. I agree with infectious disease consult. Blood pressure is soft but is improving. Continue with aggressive hydration currently on normal saline with 130 mL/h 12/01/2022 Patient looks more comfortable, more energetic today, pleasant not in distress. No abdominal pain. He is on regular diet now. No bowel movement yet. He was able to take a shower this morning Patient still has fever of 101 today but is improving compared to yesterday 105.6 Continue with Zosyn 12/02. Patient seen and examined. Patient had a fever of 100.5 this morning. Denies abdominal pain. Denies any blood in the stools. 12/03. Patient seen and examined. Continues to feel better, abdominal pain has resolved. No acute issues overnight. 12/04. Patient seen and examined. No further episodes of abdominal pain. ID recommended discharging patient on oral Cipro and Flagyl REVIEW OF SYSTEMS: CONSTITUTIONAL: No fever, no malaise,. CARDIOVASCULAR: No chest pain, no palpitations, no syncope. PULMONARY: No shortness of breath, no cough, GASTROINTESTINAL: No diarrhea, no nausea, no vomiting, no abdominal pain. NEUROLOGICAL: No headaches, no weakness, PHYSICAL EXAMINATION: GENERAL: The patient is alert and oriented x3, not in any acute distress. Well developed, well nourished. HEENT: Pupils are round and equally reacting to light. EOMI. No scleral icterus. No conjunctival pallor. Normocephalic, atraumatic. No pharyngeal erythema. No thyromegaly. CARDIOVASCULAR: S1 and S2 present. No murmurs, rubs, or gallops. PULMONARY: Chest is clear to auscultation, no wheezing or crackles. ABDOMEN: Soft, nontender, nondistended, normoactive bowel sounds. No palpable organomegaly. MUSCULOSKELETAL: No joint swelling or deformity. EXTREMITIES: No cyanosis, clubbing, or pedal edema. NEUROLOGICAL: Gross neurological examination did not reveal any focal deficits. SKIN: No rashes. Assessment and plan Acute appendicitis status post lap appendectomy Sepsis with fever and tachycardia Gram-negative bacilli (2 ) bacteremia Hypotension secondary to above History of hypertension Obesity with BMI of 31.2 Monitor vital signs Monitor CBC Monitor CMP Continue pain management Continue antiemetics Infectious disease recommended starting patient on oral Cipro and Flagyl for 10 days Surgery following Labs and medication were reviewed.. Continue same treatment. Continue with symptomatic treatment. Resume home medication. Monitor labs and vitals. DVT and GI prophylaxis. Further recommendations as per clinical course of the patient Dictation was produced using [employer] dictation software. please excuse any grammatical, word or spelling errors. Objective - Vital Signs Vital signs: Vital Signs Temp 98.3 F 12/04/22 08:00 Pulse 52 L 12/04/22 08:00 Resp 16 12/04/22 08:00 BP 158/95 12/04/22 08:00 Pulse Ox 97 12/04/22 08:00 FiO2 21 12/01/22 09:46 Intake & Output 12/03/22 12/04/22 12/04/22 18:59 06:59 18:59 Output Total 1401 590 Balance -1401 -590 Output: Urine 1400 590 Stool 1 Other: Voiding Method Toilet - Labs CBC & Chem 7: 12/03/22 06:26 12/03/22 06:26 Labs: Microbiology - Last 24 Hours (Table) 12/01/22 16:27 Blood Culture - Preliminary Blood 11/29/22 09:35 Blood Culture Gram Stain - Final Blood Blood Culture - Final Escherichia coli 11/29/22 08:10 Blood Culture Gram Stain - Final Blood Blood Culture - Final Escherichia coli
--- NOTE | 2022-12-04 12:56 | P.DS ---
Providers Date of admission: 11/29/22 11:12 Expected date of discharge: 12/04/22 Attending physician: Ambrose Haynes Consults: 11/29/22 11:13 Consult Physician Routine Consulting Provider: Ashlyn Burroughs Consult Reason/Comments: medicine consult Do you want consulting provider notified?: Yes 11/29/22 18:42 Consult Physician Routine Consulting Provider: Sander Belle Consult Reason/Comments: Gangrenous appendicitis with sepsis Do you want consulting provider notified?: Yes, Notify in am Primary care physician: [facility] Course: Discharge diagnosis 1. Acute gangrenous appendicitis status post laparoscopic appendectomy 2. Sepsis 3. Bacteremia 4. Mildly elevated LFTs possibly due to medications Hospital course This is a 67-year-old male who presented with right lower quadrant abdominal pain with evidence of an acute appendicitis with sepsis. He is status post laparoscopic appendectomy. Patient tolerated well. Pain is controlled. He did have positive blood cultures. He was seen by infectious disease. They are recommending Cipro and Flagyl for 10 days at discharge. Patient denies any abdominal pain. He is having bowel movements. He is tolerating diet and has been up and ambulating. He is afebrile. He is stable for discharge. Please refer to chart for any further details. Physician Mixer Operator Tablets note has been reviewed by physician. Signing provider agrees with the documented findings, assessment, and plan of care. Patient Condition at Discharge: Stable Plan - Discharge Summary Discharge Rx Participant: No New Discharge Prescriptions: New Ciprofloxacin HCl [Cipro] 500 mg PO Q12HR 10 Days #20 tab metroNIDAZOLE [Flagyl] 500 mg PO TID #30 tab Continue ALPRAZolam [Xanax] 0.25 mg PO DAILY PRN PRN Reason: Anxiety amLODIPine [Norvasc] 10 mg PO HS Sildenafil Citrate 20 mg PO DAILY PRN PRN Reason: ED Magnesium Oxide [Magnesium] 500 mg PO HS ALPRAZolam [Xanax] 0.25 mg PO HS Thiamine [Vitamin B-1] 100 mg PO HS Discharge Medication List ALPRAZolam [Xanax] 0.25 mg PO DAILY PRN 11/29/22 [History] ALPRAZolam [Xanax] 0.25 mg PO HS 11/29/22 [History] Magnesium Oxide [Magnesium] 500 mg PO HS 11/29/22 [History] Sildenafil Citrate 20 mg PO DAILY PRN 11/29/22 [History] Thiamine [Vitamin B-1] 100 mg PO HS 11/29/22 [History] amLODIPine [Norvasc] 10 mg PO HS 11/29/22 [History] Ciprofloxacin HCl [Cipro] 500 mg PO Q12HR 10 Days #20 tab 12/03/22 [Rx] metroNIDAZOLE [Flagyl] 500 mg PO TID #30 tab 12/03/22 [Rx] Follow up Appointment(s)/Referral(s): Wilbur Browre MD [Primary Care Provider] - 1-2 days Sander Belle MD [STAFF PHYSICIAN] - 1 Week Ambrose Haynes MD [Medical Doctor] - 1 Week Activity/Diet/Wound Care/Special Instructions: No lifting over 10 pounds You may shower. No soaking or tub baths for 2 weeks Very light activity until you are reevaluated at your follow up appointment with your surgeon Take Tylenol 650mg [id number] every 4-6 hours as needed for pain Discharge Disposition: HOME SELF-CARE
[2022-12-04] MEDS ORDERED: FAMOTIDINE 20 MG TAB PO SCH (21:00)
== END 2022-12-04 13:55 | disposition home or self-care (01) | DRG 854 ==
LOC: EC 07:37 → 5NMEDONC 11:12 → 4SSUR 12:21
PROVIDERS: ADMIT Surgery; ATTEND Surgery
PROC: 0DTJ4ZZ Resection of Appendix, Percutaneous Endoscopic Approach (ICD-10-PCS; principal; 2022-11-29 09:25)
DX: A41.51 Sepsis due to Escherichia coli [E. coli] (principal); K35.31 Acute appendicitis with localized peritonitis and gangrene, without perforation; I95.9 Hypotension, unspecified; I10 Essential (primary) hypertension; R25.1 Tremor, unspecified; B96.20 Unspecified Escherichia coli [E. coli] as the cause of diseases classified elsewhere; B96.1 Klebsiella pneumoniae [K. pneumoniae] as the cause of diseases classified elsewhere; E66.9 Obesity, unspecified; Z68.31 Body mass index [BMI] 31.0-31.9, adult; R79.89 Other specified abnormal findings of blood chemistry; T50.915A Adverse effect of multiple unspecified drugs, medicaments and biological substances, initial encounter; W19.XXXA Unspecified fall, initial encounter; Z88.8 Allergy status to other drugs, medicaments and biological substances; Z79.899 Other long term (current) drug therapy
CPT/HCPCS: 36415; 70450; 74177; 80048; 80053; 83605; 83690; 83735; 85025; 85610; 85730; 86140; 87040; 87077; 87186; 87635; 88304; 93005; 94760; 96360; 99291